=== PATIENT | male | born 1950 | race Caucasian/White ===

== ENCOUNTER 2021-03-07 20:01 | Inpatient (IN) ==
[2021-03-07] MEDS ORDERED: POTASSIUM CHLORIDE 20 MEQ TABLET PO PRN ×2 (20:20)
[2021-03-07] MEDS ORDERED: VANCOMYCIN PER PHARMACY IV SCH (20:20)
[2021-03-07] MEDS ORDERED: MAGNESIUM SULFATE 2 GM/50 ML BAG IV PRN (20:20)
[2021-03-07] MEDS ORDERED: DEXTROSE 31 GM ORAL.SUSP PO PRN (20:20)
[2021-03-07] MEDS ORDERED: POTASSIUM CHLORIDE 40 MEQ in DEXTROSE 5% IN WATER 500 ML IV PRN (20:20)
[2021-03-07] MEDS ORDERED: DEXTROSE 50% 50 ML VIAL IV PRN (20:20)
[2021-03-07] MEDS ORDERED: IPRATROPIUM/ALBUTEROL 3 ML AMPUL.NEB NEB PRN (20:20)
[2021-03-07] MEDS ORDERED: METOCLOPRAMIDE 10 MG/2 ML VIAL IV PRN (20:20)
[2021-03-07] MEDS ORDERED: ACETAMINOPHEN 325 MG TABLET PO PRN (20:20)
[2021-03-07] MEDS ORDERED: ONDANSETRON 4 MG/2 ML VIAL IV PRN (20:20)
[2021-03-07] MEDS ORDERED: SENNOSIDES 1 TABLET PO PRN (20:20)
--- NOTE | 2021-03-07 20:20 | Internal Med History&Physical ---
HPI History of Present Illness Patient information: Note initiated : 03/07/21 at 8:04 pm Service Date, if different from initiated Date: [] Patient: Kevin Randolph a 70 y/o M admitted on for weakness, neutropenic fever. Chief Complaint: [] History of present illness: Mr. Randolph is a 70 year old M Patient presents to [facility] with shaking tremors. 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 He felt fine in the morning prior to his c hemotherapy. He has a history of tremors the left side and has them daily. Symptoms are worse than other times. Remaining go to the ED today is because his left side tremors are came so severe and then they started moving over the right side which she has not had before. He does not feel ill just tired. Denies chest pain shortness of breath abdominal pain. When he was evaluated in the ED his laboratory was concerning for septic picture because he had a severe lactic acidosis and he was febrile in the ED -and with his chronic pancytopenia a source of infection was sought after but unable to be identified. Laboratory was significant for neutropenia which is had at least since February 16. Is a history of pancytopenia and has been receiving platelet transfusions as well as red blood cell transfusions when hematocrit falls to less than 28. In the ED he was evaluated his blood pressure remained stable in the low 100s. He was febrile of 103 when he came in. His procalcitonin was elevated mildly 0.57. He had a CT abdomen pelvis looking for source of infection as initial chest x- ray and urinalysis were unremarkable. The CT only showed a questionable developing pneumonia. [facility] unable to find a bed for the patient and thus we were contacted. Blood cultures were obtained patient received sepsis protocol IV fluids and given vancomycin and cefepime. ED physician in the process of trying to get a hold of the patient's oncologist but has been unsuccessful. Review of Systems: denies headache/fever/chills/nausea/vomiting/chest or abdominal pain/cough/dyspnea/diarrhea. Otherwise see above. MEDS/ALLERGIES Home Medications and Allergies Home Medications Medication Instructions Recorded Confirmed Type aripiprazole 5 mg PO DAILY 06/09/19 07/01/19 History bisoprolol-hydrochlorothiazide 1 each PO DAILY 06/09/19 07/01/19 History cholecalciferol (vitamin D3) 5,000 unit PO DAILY 06/09/19 07/01/19 History losartan 100 mg PO DAILY 06/09/19 07/01/19 History metformin 500 mg PO BIDCC 06/09/19 07/01/19 History multivitamin 1 each PO DAILY 06/09/19 07/01/19 History Allergies Allergy/AdvReac Type Severity Reaction Status Date / Time No Known Drug Intolerances Allergy Unknown Verified 06/09/19 08:53 EXAM Constitutional Exam: General: Alert, Awake, No acute Distress Eyes/N/T: EOMI, PERRL, MM Head/Neck: neck supple, normocephalic atraumatic CV: RRR, No murmurs, normal s1/s2 Pulm: Clear b/l, no wheezing/rhonchi/rales Abd: soft, nontender, +BS x4 Ext: no clubbing/cyanosis/edema Neuro: Alert, no focal deficits, moves all extremities, CN 2-12 grossly intact, symmetrical strength b/l upper/lower, sensations intact b/l upper/lower Skin: warm/dry A/P Narrative A/P Narrative: A: *Neutropenic fever & Lactic Acidosis, ?sepsis: Unknown source of infection at this time -CT c/a/p only showed a ?developing pneumonia *Volume depletion: *Pancytopenia: Receives prn transfusions for PLT <30k and Hct <28 -ANC 740, Hct 24, Plt 19 *AML/MDS: Follows with Dr. Alfonso. last chemotherapy the day of admission *DM: *COPD( ): *Depression/anxiety: *GERD: *HTN: On ARB/BB *Left-side tremors, chronic for several years: P: -Vanc/Zosyn/levaquin, if fevers persist by day 4 then add antifungal therapy -pending BC -discuss with his oncologist tomorrow -prn Transfusions for Hct<28 and PLT <30k -consider G-CSF if ANC declines -hold ARB/BB for low-normal BP -SSI, hold metformin for now - -pt/to -ppx: SCD(hold chemical for PLT<50k)/home ppi Time Spent With Patient Time: Total time spent is greater than 50% in coordination of care (as documented) at patient's floor/unit and/or counseling patient:
[2021-03-07] MEDS ORDERED: 0.9 % SODIUM CHLORIDE 250 ML IV SCH ×2 (20:30→20:45)
[2021-03-07] MEDS ORDERED: 0.9 % SODIUM CHLORIDE 1,000 ML IV SCH (20:30)
[2021-03-07] MEDS ORDERED: ALPRAZolam 0.25 MG TABLET PO PRN (22:39)
[2021-03-07] MEDS ORDERED: LABETALOL 5 MG/ML ML IV PRN (22:39)
[2021-03-07] MEDS ORDERED: PROCHLORPERAZINE 10 MG/2 ML VIAL IV PRN (22:40)
[2021-03-07] MEDS ORDERED: LEVOFLOXACIN 750 MG/150 ML BAG IV ONE (22:54)
[2021-03-07] MEDS: VANCOMYCIN 1,500 MG in 0.9 % SODIUM CHLORIDE 500 ML IV SCH (22:54)
[2021-03-07] MEDS: 0.9 % SODIUM CHLORIDE 10 ML SYRINGE IV SCH (22:55)
[2021-03-07] MEDS: LEVOFLOXACIN 750 MG/150 ML BAG IV SCH (23:01)
[2021-03-07] MEDS: DOCUSATE SODIUM 100 MG CAPSULE PO SCH (23:16)
[2021-03-07] MEDS: INSULIN LISPRO 1 UNIT/0.01 ML UNIT SQ SCH (23:17)
[2021-03-07 23:44] LABS: ALT/SGPT 42 U/L (<40); AST/SGOT 22 U/L (<40); Albumin 3.1 gm/dL (3.2-5.2); Albumin/Globulin Ratio 1.5 (1.0-2.3); Alkaline Phosphatase 106 U/L (39-117); Bilirubin,Direct 0.3 mg/dL (<0.3); Bilirubin,Total 0.5 mg/dL (0.1-1.0); Blood Urea Nitrogen 20 mg/dL (8-23); Calcium 8.3 mg/dL (8.6-10.4); Carbon Dioxide 19 mmol/L (22-30); Chloride 103 mmol/L (96-108); Glomerular Filtration Rate 90; Glucose 372 mg/dL (70-105); Lactate Dehydrogenase 131 U/L (135-225); Triglycerides 90 mg/dL (<150); Uric Acid 3.4 mg/dL (2.5-8.0)
[2021-03-08] MEDS: PIPERACILLIN SODIUM/TAZOBACTAM 3.375 GM in DEXTROSE 5% IN WATER 50 ML IV SCH ×4 (00:27→17:32)
[2021-03-08] MEDS: INSULIN LISPRO 1 UNIT/0.01 ML UNIT SQ SCH ×5 (01:21→21:08)
[2021-03-08] MEDS: 0.9 % SODIUM CHLORIDE 10 ML SYRINGE IV SCH ×3 (05:06→20:54)
[2021-03-08] MEDS: PANTOPRAZOLE 40 MG PACKET PO SCH (07:16)
--- NOTE | 2021-03-08 07:34 | Internal Med Progress Note ---
SUBJECTIVE Subjective Patient information: Note initiated : 03/08/21 at 7:30 am Service Date, if different from initiated Date: [] Patient: Kevin Randolph 70 y/o M admitted on 03/07/21 for weakness, neutropenic fever. Chief Complaint: [] Interval history: History of present illness: Mr. Randolph is a 70 year old M Patient presents to [facility] with shaking tremors. 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 He felt fine in the morning prior to his chemotherapy. He has a history of tremors the left side and has them daily. Symptoms are worse than other times. Remaining go to the ED today is because his left side tremors are came so severe and then they started moving over the right side which she has not had before. He does not feel ill just tired. Denies chest pain shortness of breath abdominal pain. When he was evaluated in the ED his laboratory was concerning for septic picture because he had a severe lactic acidosis and he was febrile in the ED -and with his chronic pancytopenia a source of infection was sought after but unable to be identified. Laboratory was significant for neutropenia which is had at least since February 16. Is a history of pancytopenia and has been receiving platelet transfusions as well as red blood cell transfusions when hematocrit falls to less than 28. In the ED he was evaluated his blood pressure remained stable in the low 100s. He was febrile of 103 when he came in. His procalcitonin was elevated mildly 0.57. He had a CT abdomen pelvis looking for source of infection as initial chest x- ray and urinalysis were unremarkable. The CT only showed a questionable developing pneumonia. [facility] unable to find a bed for the patient and thus we were contacted. Blood cultures were obtained patient received sepsis protocol IV fluids and given vancomycin and cefepime. ED physician in the process of trying to get a hold of the patient's oncologist but has been unsuccessful. 03/08 Constitutional Vitals: Vital Signs Temp Pulse Resp BP Pulse Ox 97.9 F 73 12 138/80 98 03/08/21 05:15 03/08/21 06:07 03/08/21 06:07 03/08/21 06:06 03/08/21 06:07 Period Temp Pulse Resp BP Sys/Quijano Pulse Ox Last 24 Hr 97.3 F-98.0 F 71-92 10-20 90-138/59-85 94-100 Intake and Output 03/07/21 03/08/21 03/08/21 21:59 05:59 13:59 Intake Total 1296 Output Total 600 Balance 696 Weight 82.1 kg Intake & Output: Intake & Output 03/07/21 03/08/21 03/08/21 21:59 05:59 13:59 Intake Total 1296 Output Total 600 Balance 696 Weight 82.1 kg Intake: IV 871 Sodium Chloride 0.9% 250 ml @ 21 20 mls/hr IV .[id number] [facility] Rx#: [id number] LEVAQUIN 750 mg In 150 ml @ 0 150 mls/hr IV .STK-MED ONE Rx#: [id number] Zosyn 3.375 gm In Dextrose 5% 50 in Water 50 ml @ 100 mls/hr IV Q6H [facility] Rx#:[id number] Vancomycin 1,500 mg In Sodium 500 Chloride 0.9% 500 ml @ 333.3 mls/hr IV Q12H [facility] Rx#: [id number] Oral 100 Blood Product 325 Output: Void Amount 600 Other: Urine Appearance Clear Urine Color Dark Yellow Exam: General: Alert, Awake, No acute Distress Eyes/N/T: EOMI, Head/Neck: neck supple, CV: RRR, No murmurs, Pulm: Clear b/l, no wheezing/rhonchi/rales Abd: soft, nontender, +BS x4 Ext: no clubbing/cyanosis/edema Neuro: Alert, no focal deficits, moves all extremities, Skin: warm/dry OBJ DATA Labs CBC & Chem 7: 03/08/21 08:20 03/07/21 22:41 Labs: Abnormal Lab Results 03/07/21 22:41 Potassium 5.2 H Carbon Dioxide 19 L Glucose 372 H Calcium 8.3 L Direct Bilirubin 0.3 H GGT 172 H ALT 42 H Lactate Dehydrogenase 131 L Total Protein 5.1 L Albumin 3.1 L Globulin 2.0 L Meds: Medications Acetaminophen (Acetaminophen 325 Mg Tablet) 650 mg PO Q6HP PRN PRN Reason: PAIN/FEVER > 101 Acyclovir (Acyclovir 400 Mg Tablet) 800 mg PO BID [facility]; Protocol Albuterol/Ipratropium (Ipratropium/Albuterol 3 Ml Ampul.Neb) 3 ml NEB Q4HP PRN PRN Reason: Shortness Of Breath Alprazolam (Alprazolam 0.25 Mg Tablet) 0.25 mg PO BIDP PRN PRN Reason: Anxiety Dextrose (Dextrose 50% 50 Ml Vial) 0 ml IV UD PRN PRN Reason: Hypoglycemia Diagnostic Test (Pha) (Accu-Chek 1 Each Strip) 1 each FS ACHS [facility] Last Admin: 03/08/21 03:21 Dose: 1 each Documented by: Docusate Sodium (Docusate Sodium 100 Mg Capsule) 100 mg PO BID [facility] Last Admin: 03/07/21 23:16 Dose: 100 mg Documented by: Glucose (Dextrose 31 Gm Oral.Susp) 15 gm PO PRN PRN PRN Reason: Hypoglycemia Heparin Sodium (Porcine) (Heparin Flush 10 Units/Ml 5 Ml Syringe) 5 ml IV Q12 [facility] Potassium Chloride 40 meq/ (Dextrose) 520 mls @ 130 mls/hr IV UD PRN PRN Reason: Potassium < 3 Magnesium Sulfate (Magnesium Sulfate) 2 gm in 50 mls @ 50 mls/hr IV UD PRN PRN Reason: Magnesium </= 1.6 Sodium Chloride (Sodium Chloride 0.9%) 1,000 mls @ 75 mls/hr IV .[id number] [facility] Stop: 03/08/21 09:49 Last Admin: 03/07/21 22:45 Dose: 75 mls/hr Documented by: Piperacillin Sod/Tazobactam (Sod 3.375 gm/ Dextrose) 50 mls @ 100 mls/hr IV Q6H [facility]; Protocol Last Infusion: 03/08/21 00:59 Dose: Infused Documented by: Sodium Chloride (Sodium Chloride 0.9%) 250 mls @ 20 mls/hr IV .[id number] [facility] Stop: 03/08/21 08:59 Last Infusion: 03/08/21 05:02 Dose: 20 mls/hr Documented by: Sodium Chloride (Sodium Chloride 0.9%) 250 mls @ 20 mls/hr IV .[id number] [facility] Stop: 03/08/21 09:14 Vancomycin HCl 1,500 mg/ (Sodium Chloride) 500 mls @ 333.3 mls/hr IV Q12H [facility] Last Infusion: 03/08/21 00:57 Dose: Infused Documented by: Levofloxacin (Levaquin) 750 mg in 150 mls @ 100 mls/hr IV Q24H [facility] Last Infusion: 03/08/21 00:58 Dose: Infused Documented by: Insulin Human Lispro (Insulin Lispro 1 Unit/0.01 Ml Unit) 0 unit SQ ACHS [facility]; Protocol Last Admin: 03/08/21 01:21 Dose: 14 units Documented by: Labetalol HCl (Labetalol 5 Mg/Ml Ml) 0 mg IV Q2HP PRN PRN Reason: Hypertension Metoclopramide HCl (Metoclopramide 10 Mg/2 Ml Vial) 10 mg IV Q6HP PRN PRN Reason: Nausea And Vomiting Ondansetron HCl (Ondansetron 4 Mg/2 Ml Vial) 4 mg IV Q4HP PRN PRN Reason: Nausea And Vomiting Pantoprazole Sodium ([facility] 40 Mg Packet) [facility] Potassium Chloride (Potassium Chloride 20 Meq Tablet) 40 meq PO UD PRN PRN Reason: Potssium is 3-3.5 Potassium Chloride (Potassium Chloride 20 Meq Tablet) 40 meq PO UD PRN PRN Reason: Potassium < 3 Prochlorperazine (Prochlorperazine 10 Mg/2 Ml Vial) 5 mg IV Q4-6HP PRN PRN Reason: Nausea And Vomiting Senna (Sennosides 1 Tablet) 2 tab PO DAILYP PRN PRN Reason: Constipation Sodium Chloride (0.9 % Sodium Chloride 10 Ml Syringe) 10 ml IV Q8 [facility] Last Admin: 03/08/21 05:06 Dose: 10 ml Documented by: Vancomycin HCl (Vancomycin Per Pharmacy) 1 order IV [facility]; Protocol A/P Narrative A/P Narrative: A: *Neutropenic fever & Lactic Acidosis, ?sepsis: Unknown source of infection at this time -CT c/a/p only showed a ?developing pneumonia *Volume depletion: *Pancytopenia: Receives prn transfusions for PLT <30k and Hct <28 -ANC 740, Hct 24, Plt 19 *AML/MDS: Follows with Dr. Alfonso. last chemotherapy the day of admission *DM: *COPD( ): *Depression/anxiety: *GERD: *HTN: On ARB/BB *Left-side tremors, chronic for several years: P: -Discussed the case with Dr. Gruber (colleague of Dr. Alfonso) who recommended to continue current therapy and heme prn orders and await cx's and if he continues to do as well as he is doing then d/c on oral therapy once cultures return. -Vanc/Zosyn/levaquin, if fevers persist by day 4 then add antifungal therapy -pending BC results from [facility] -discuss with his oncologist -prn Transfusions for Hct<28 and PLT <30k -consider G-CSF if ANC declines -restart BP meds, BB today and ARB tomorrow. Needs meds updated in system first -SSI, hold metformin for now - -pt/to -ppx: SCD(hold chemical for PLT<50k)/home ppi Time Spent With Patient Time: Total time spent is greater than 50% in coordination of care (as doc umented) at patient's floor/unit and/or counseling patient: QUALITY Stroke Symptom Onset Unknown: No VTE Deep Vein Thrombosis/Pulmonary Embolism Present on Admission: No
--- NOTE | 2021-03-08 08:56 | XRay Report ---
HISTORY: Weakness, neutropenic fever, evaluate for developing pneumonia FINDINGS: Patient has COPD with moderate pulmonary fibrosis throughout both lungs. Greatest opacification of the lung parenchyma is behind the left heart border. The pulmonary fibrosis is a chronic finding which was seen on 08/14/07. It has become worse. There is no lobar consolidation or pleural effusion. The heart size is normal. Aorta is mildly tortuous. There is a Port-A-Cath placed through the right internal jugular vein with the tip in the superior vena cava. There is no widening of the mediastinum. IMPRESSION: Moderate COPD with pulmonary fibrosis Asymmetric opacification in the left lower lobe which could be superimposed pneumonia or atelectasis. Interpreted and Authenticated by: Margarito Jackson 03/08/21
[2021-03-08] MEDS: VANCOMYCIN 1,500 MG in 0.9 % SODIUM CHLORIDE 500 ML IV SCH ×2 (09:35→21:09)
[2021-03-08] MEDS: DOCUSATE SODIUM 100 MG CAPSULE PO SCH ×3 (09:36→23:07)
[2021-03-08] MEDS: ACYCLOVIR 400 MG TABLET PO SCH ×2 (09:36→21:08)
[2021-03-08 12:50] LABS: ALT/SGPT 42 U/L (<40); AST/SGOT 22 U/L (<40); Albumin 2.9 gm/dL (3.2-5.2); Albumin/Globulin Ratio 1.3 (1.0-2.3); Alkaline Phosphatase 92 U/L (39-117); Bilirubin,Direct 0.3 mg/dL (<0.3); Bilirubin,Total 0.7 mg/dL (0.1-1.0); Blood Urea Nitrogen 18 mg/dL (8-23); Calcium 8.7 mg/dL (8.6-10.4); Carbon Dioxide 20 mmol/L (22-30); Chloride 107 mmol/L (96-108); Globulin 2.2 gm/dL (2.2-3.7); Glomerular Filtration Rate 95; Glucose 200 mg/dL (70-105); Lactate Dehydrogenase 140 U/L (135-225); Phosphorous 2.5 mg/dL (2.5-4.5); Triglycerides 84 mg/dL (<150); Uric Acid 2.5 mg/dL (2.5-8.0)
[2021-03-08 13:15] LABS: Hemoglobin A1C 7.4 % Hgb (4.0-6.0)
[2021-03-08 13:19] LABS: Hematocrit 21.2 % (41.0-55.0); Hemoglobin 7.1 g/dL (13.5-16.5); Mean Cell Volume 95.9 fL (80.0-100.0); Mean Corpuscular HGB Conc 33.5 g/dL (31.0-36.0); Platelet Count 6 K/mcL (140-440); RBC 2.21 M/mcL (4.50-5.90); Red Cell Distribution Width 14.9 % (11.5-14.5); WBC 0.3 K/mcL (4.5-11.0)
[2021-03-08] MEDS ORDERED: 0.9 % SODIUM CHLORIDE 250 ML IV SCH (13:45)
[2021-03-08 14:40] LABS: Anisocytosis 1+ (None Seen); Band Neutrophils % 17 % (0-10); Hypochromasia 2+ (None Seen); Lymphocytes % 34 % (15-49); Metamyelocytes % 1 %; Monocytes % (Manual) 7 % (1-12); Nucleated Red Blood Cells 3 % (0-0); Platelet Estimate DECREASED (Normal); RBC Morphology ABNORMAL (Normal); Reactive Lymphocytes 4 % (0-2); Segmented Neutrophils % 37 % (38-78)
[2021-03-08] MEDS: LEVOFLOXACIN 750 MG/150 ML BAG IV SCH (15:17)
[2021-03-09] MEDS: PIPERACILLIN SODIUM/TAZOBACTAM 3.375 GM in DEXTROSE 5% IN WATER 50 ML IV SCH ×4 (00:14→18:22)
[2021-03-09] MEDS: 0.9 % SODIUM CHLORIDE 10 ML SYRINGE IV SCH ×5 (05:42→22:18)
[2021-03-09 07:02] LABS: ALT/SGPT 44 U/L (<40); AST/SGOT 29 U/L (<40); Albumin 2.8 gm/dL (3.2-5.2); Albumin/Globulin Ratio 1.3 (1.0-2.3); Alkaline Phosphatase 101 U/L (39-117); Bilirubin,Direct 0.3 mg/dL (<0.3); Bilirubin,Total 0.6 mg/dL (0.1-1.0); Blood Urea Nitrogen 16 mg/dL (8-23); Calcium 8.3 mg/dL (8.6-10.4); Carbon Dioxide 22 mmol/L (22-30); Chloride 107 mmol/L (96-108); Globulin 2.1 gm/dL (2.2-3.7); Glomerular Filtration Rate 95; Glucose 201 mg/dL (70-105); Lactate Dehydrogenase 146 U/L (135-225); Phosphorous 2.4 mg/dL (2.5-4.5); Triglycerides 72 mg/dL (<150); Uric Acid 2.2 mg/dL (2.5-8.0)
[2021-03-09 07:23] LABS: Hematocrit 21.3 % (41.0-55.0); Hemoglobin 7.3 g/dL (13.5-16.5); Mean Cell Volume 92.2 fL (80.0-100.0); Mean Corpuscular HGB Conc 34.3 g/dL (31.0-36.0); Mean Platelet Volume 10.3 fL (7.4-10.4); Platelet Count 28 K/mcL (140-440); RBC 2.31 M/mcL (4.50-5.90); Red Cell Distribution Width 14.6 % (11.5-14.5); WBC 0.2 K/mcL (4.5-11.0)
[2021-03-09] MEDS: DOCUSATE SODIUM 100 MG CAPSULE PO SCH ×2 (07:44→20:29)
[2021-03-09] MEDS: INSULIN LISPRO 1 UNIT/0.01 ML UNIT SQ SCH ×4 (07:44→20:27)
[2021-03-09] MEDS: PANTOPRAZOLE 40 MG PACKET PO SCH ×2 (07:45→08:02)
[2021-03-09] MEDS: ACYCLOVIR 400 MG TABLET PO SCH ×2 (08:13→20:36)
[2021-03-09 08:35] LABS: Band Neutrophils % 19 % (0-10); Eosinophils % (Manual) 2 % (0-7); Hypochromasia 1+ (None Seen); Lymphocytes % 32 % (15-49); Metamyelocytes % 4 %; Monocytes % (Manual) 7 % (1-12); Myelocytes % 4 %; Platelet Estimate MARKEDLY DECREASED (Normal); RBC Morphology ABNORMAL (Normal); Segmented Neutrophils % 32 % (38-78)
[2021-03-09] MEDS: VANCOMYCIN 1,500 MG in 0.9 % SODIUM CHLORIDE 500 ML IV SCH ×2 (09:40→20:31)
--- NOTE | 2021-03-09 11:08 | Internal Med Progress Note ---
SUBJECTIVE Subjective Patient information: Note initiated : 03/09/21 at 11:01 am Service Date, if different from initiated Date: [] Patient: Kevin Randolph 70 y/o M admitted on 03/07/21 for weakness, neutropenic fever. Chief Complaint: [neutropenia fever] 03/09/21: Afebrile overnight. Absolute neutrophile count is 102 this morning. c/o chills. c/o left sided tremors. Denies fever or sweating. c/o general body weakness. Denies nausea or vomiting. Constitutional Vitals: Vital Signs Temp Pulse Resp BP Pulse Ox 36.6 C 73 19 109/66 95 03/09/21 08:01 03/09/21 06:00 03/09/21 08:01 03/09/21 08:01 03/09/21 06:00 Period Temp Pulse Resp BP Sys/Quijano Pulse Ox Last 24 Hr 36.0 C-36.7 C 70-103 15-24 109-150/42-87 81-97 Intake and Output 03/08/21 03/09/21 03/09/21 21:59 05:59 13:59 Intake Total 1930 841 290 Output Total 350 1200 625 Balance 1580 -359 -335 Weight 81.42 kg Intake & Output: Intake & Output 03/08/21 03/09/21 03/09/21 21:59 05:59 13:59 Intake Total 1930 841 290 Output Total 350 1200 625 Balance 1580 -359 -335 Weight 81.42 kg Intake: IV 1450 550 50 Sodium Chloride 0.9% 1,000 ml @ 1000 75 mls/hr IV .[id number] [facility] Rx#: [id number] Sodium Chloride 0.9% 250 ml @ 200 20 mls/hr IV .[id number] [facility] Rx#: [id number] Zosyn 3.375 gm In Dextrose 5% 100 50 50 in Water 50 ml @ 100 mls/hr IV Q6H [facility] Rx#:[id number] Vancomycin 1,500 mg In Sodium 500 Chloride 0.9% 500 ml @ 333.3 mls/hr IV Q12H [facility] Rx#: [id number] Oral 480 240 Blood Product 291 Output: Void Amount 350 1200 625 Other: Meal Dinner Breakfast Percent of Meal Consumed 100% 100% Feeding Ability Independent Urine Appearance Clear Clear Clear Urine Color Pale Pale Pale General appearance: cooperative and no acute distress Head Head exam: Present atraumatic and normocephalic Eye Eye exam: Present EOMI and PERRL ENT ENT exam: Present mucous membranes moist, normal exam and normal external ear exam Neck Neck exam: Present normal inspection; Absent lymphadenopathy, tenderness and thyromegaly Respiratory Respiratory exam: Absent accessory muscle use, respiratory distress and wheezes Cardiovascular Cardiovascular exam: Present normal rate and rhythm; Absent JVD GI/Abdominal GI/Abdominal exam: Present normal bowel sounds and soft; Absent organomegaly and tenderness Rectal Rectal exam: Present deferred Extremities Exam Extremities exam: Present full ROM, normal capillary refill and normal inspection; Absent tenderness Neurological Exam Neurological exam: Present alert, CN II-XII intact and oriented X3; Absent motor sensory deficit Psychiatric Psychiatric exam: Present normal affect and normal mood; Absent anxious and depressed Skin Skin exam: Present dry and intact OBJ DATA Labs CBC & Chem 7: 03/09/21 05:02 03/09/21 05:02 Labs: Abnormal Lab Results 03/09/21 03/09/21 03/08/21 05:02 05:02 08:20 WBC 0.2 L* RBC 2.31 L Hgb 7.3 L Hct 21.3 L RDW 14.6 H Plt Count 28 L* Seg Neutrophils % 32 L Band Neutrophils % 19 H Nucleated RBCs Reactive Lymphocytes Platelet Estimate Markedly decreased A RBC Morphology Abnormal A Hypochromasia 1+ A Anisocytosis Potassium Carbon Dioxide 20 L Glucose 201 H 200 H Hemoglobin A1c Uric Acid 2.2 L Calcium 8.3 L Phosphorus 2.4 L Direct Bilirubin 0.3 H 0.3 H GGT 138 H 163 H ALT 44 H 42 H Lactate Dehydrogenase C-Reactive Protein Total Protein 4.9 L 5.1 L Albumin 2.8 L 2.9 L Globulin 2.1 L Procalcitonin 03/08/21 03/08/21 03/08/21 08:20 08:20 08:20 WBC RBC Hgb Hct RDW Plt Count Seg Neutrophils % Band Neutrophils % Nucleated RBCs Reactive Lymphocytes Platelet Estimate RBC Morphology Hypochromasia Anisocytosis Potassium Carbon Dioxide Glucose Hemoglobin A1c 7.4 H Uric Acid Calcium Phosphorus Direct Bilirubin GGT ALT Lactate Dehydrogenase C-Reactive Protein 6.40 H Total Protein Albumin Globulin Procalcitonin 0.60 H 03/08/21 03/07/21 08:20 22:41 WBC 0.3 L* RBC 2.21 L Hgb 7.1 L Hct 21.2 L RDW 14.9 H Plt Count 6 L* Seg Neutrophils % 37 L Band Neutrophils % 17 H Nucleated RBCs 3 H Reactive Lymphocytes 4 H Platelet Estimate Decreased A RBC Morphology Abnormal A Hypochromasia 2+ A Anisocytosis 1+ A Potassium 5.2 H Carbon Dioxide 19 L Glucose 372 H Hemoglobin A1c Uric Acid Calcium 8.3 L Phosphorus Direct Bilirubin 0.3 H GGT 172 H ALT 42 H Lactate Dehydrogenase 131 L C-Reactive Protein Total Protein 5.1 L Albumin 3.1 L Globulin 2.0 L Procalcitonin Meds: Medications Acetaminophen (Acetaminophen 325 Mg Tablet) 650 mg PO Q6HP PRN PRN Reason: PAIN/FEVER > 101 Acyclovir (Acyclovir 400 Mg Tablet) 800 mg PO BID [facility]; Protocol Last Admin: 03/09/21 08:13 Dose: 800 mg Documented by: Albuterol/Ipratropium (Ipratropium/Albuterol 3 Ml Ampul.Neb) 3 ml NEB Q4HP PRN PRN Reason: Shortness Of Breath Alprazolam (Alprazolam 0.25 Mg Tablet) 0.25 mg PO BIDP PRN PRN Reason: Anxiety Last Admin: 03/09/21 08:32 Dose: 0.25 mg Documented by: Dextrose (Dextrose 50% 50 Ml Vial) 0 ml IV UD PRN PRN Reason: Hypoglycemia Diagnostic Test (Pha) (Accu-Chek 1 Each Strip) 1 each FS ACHS [facility] Last Admin: 03/09/21 07:41 Dose: 1 each Documented by: Docusate Sodium (Docusate Sodium 100 Mg Capsule) 100 mg PO BID [facility] Last Admin: 03/09/21 07:44 Dose: 100 mg Documented by: Filgrastim (Filgrastim 300 Mcg/Ml Vial) 300 mcg SQ DAILY [facility] Glucose (Dextrose 31 Gm Oral.Susp) 15 gm PO PRN PRN PRN Reason: Hypoglycemia Heparin Sodium (Porcine) (Heparin Flush 10 Units/Ml 5 Ml Syringe) 5 ml IV Q12 [facility] Last Admin: 03/09/21 07:45 Dose: 5 ml Documented by: Potassium Chloride 40 meq/ (Dextrose) 520 mls @ 130 mls/hr IV UD PRN PRN Reason: Potassium < 3 Magnesium Sulfate (Magnesium Sulfate) 2 gm in 50 mls @ 50 mls/hr IV UD PRN PRN Reason: Magnesium </= 1.6 Piperacillin Sod/Tazobactam (Sod 3.375 gm/ Dextrose) 50 mls @ 100 mls/hr IV Q6H [facility]; Protocol Last Infusion: 03/09/21 06:21 Dose: Infused Documented by: Vancomycin HCl 1,500 mg/ (Sodium Chloride) 500 mls @ 333.3 mls/hr IV Q12H [facility] Last Admin: 03/09/21 09:40 Dose: 333 mls/hr Documented by: Levofloxacin (Levaquin) 750 mg in 150 mls @ 100 mls/hr IV Q24H [facility] Last Infusion: 03/08/21 19:42 Dose: Infused Documented by: Insulin Human Lispro (Insulin Lispro 1 Unit/0.01 Ml Unit) 0 unit SQ ACHS [facility]; Protocol Last Admin: 03/09/21 07:44 Dose: 6 units Documented by: Labetalol HCl (Labetalol 5 Mg/Ml Ml) 0 mg IV Q2HP PRN PRN Reason: Hypertension Metoclopramide HCl (Metoclopramide 10 Mg/2 Ml Vial) 10 mg IV Q6HP PRN PRN Reason: Nausea And Vomiting Ondansetron HCl (Ondansetron 4 Mg/2 Ml Vial) 4 mg IV Q4HP PRN PRN Reason: Nausea And Vomiting Pantoprazole Sodium (Pantoprazole 40 Mg Packet) 40 mg PO QAMAC [facility] Last Admin: 03/09/21 08:02 Dose: Not Given Documented by: Cyanocobalamin ( Vitamin B-12) 50 Mcg Tablet 1 dose PO QDAY [facility] Last Admin: 03/09/21 07:54 Dose: Not Given Documented by: Potassium Chloride (Potassium Chloride 20 Meq Tablet) 40 meq PO UD PRN PRN Reason: Potssium is 3-3.5 Potassium Chloride (Potassium Chloride 20 Meq Tablet) 40 meq PO UD PRN PRN Reason: Potassium < 3 Prochlorperazine (Prochlorperazine 10 Mg/2 Ml Vial) 5 mg IV Q4-6HP PRN PRN Reason: Nausea And Vomiting Senna (Sennosides 1 Tablet) 2 tab PO DAILYP PRN PRN Reason: Constipation Sodium Chloride (0.9 % Sodium Chloride 10 Ml Syringe) 10 ml IV Q8 [facility] Last Admin: 03/09/21 05:42 Dose: 10 ml Documented by: Vancomycin HCl (Vancomycin Per Pharmacy) 1 order IV UD [facility]; Protocol A/P Assessment and plan (1) Neutropenia with fever: Status: Acute (2) MDS (myelodysplastic syndrome): Status: Acute (3) AML (acute myeloblastic leukemia): Status: Acute (4) Pancytopenia: Status: Acute (5) Essential (primary) hypertension: Status: Acute (6) T2DM (type 2 diabetes mellitus): Status: Acute (7) Benign essential tremor: Status: Acute Narrative A/P Narrative: Assessment and Plans: 1. Neutropenic fever: Neupogen cbc w/ auto diff daily to trend WBC and ANC Repeat Blood culture X2 Neutropenic precautions Consult Dr. Krishna, recs. appreciated Vancomycin Zosyn Levaquin 2. h/o AML/MDS: Dr. Roberts spoke with oncologist, who agreed on current choice of antibiotics Neupogen Neutropenic precautions cbc w/ auto diff daily to trend WBC and ANC 3. Benign essential Tremors: DDx: secondary to infection Continue to treat for (any) underlying infection, see #1 4. T2DM: Hold oral hypoglycemics Continue correctional scale insulin AC HS Accu Chek AC HS Hypoglycemia protocol Diabetic diet 5. Essential HTN: Currently normotensive GI ppx: oral PPI DVT ppx: SCDs Code status: Full Prognosis: guarded Disposition: transfer to inpatient med surg Time Spent With Patient Time: Total time spent is greater than 50% in coordination of care (as documented) at patient's floor/unit and/or counseling patient: Total time spent with greater than 50% in coordination of care (as documented) at patient's floor/unit and/or counseling patient:: 25 - 35 minutes QUALITY Stroke Symptom Onset Unknown: No VTE Deep Vein Thrombosis/Pulmonary Embolism Present on Admission: No
[2021-03-09] MEDS: LEVOFLOXACIN 750 MG/150 ML BAG IV SCH (11:11)
[2021-03-09] MEDS ORDERED: PROCHLORPERAZINE 10 MG/2 ML VIAL IV PRN (11:12)
[2021-03-09] MEDS ORDERED: DEXTROSE 50% 50 ML VIAL IV PRN (11:12)
[2021-03-09] MEDS ORDERED: ONDANSETRON 4 MG/2 ML VIAL IV PRN (11:12)
[2021-03-09] MEDS ORDERED: SENNOSIDES 1 TABLET PO PRN (11:12)
[2021-03-09] MEDS ORDERED: VANCOMYCIN PER PHARMACY IV SCH (11:12)
[2021-03-09] MEDS ORDERED: MAGNESIUM SULFATE 2 GM/50 ML BAG IV PRN (11:12)
[2021-03-09] MEDS ORDERED: POTASSIUM CHLORIDE 20 MEQ TABLET PO PRN ×2 (11:12)
[2021-03-09] MEDS ORDERED: DEXTROSE 31 GM ORAL.SUSP PO PRN (11:12)
[2021-03-09] MEDS ORDERED: POTASSIUM CHLORIDE 40 MEQ in DEXTROSE 5% IN WATER 500 ML IV PRN (11:12)
[2021-03-09] MEDS ORDERED: METOCLOPRAMIDE 10 MG/2 ML VIAL IV PRN (11:12)
[2021-03-09] MEDS ORDERED: IPRATROPIUM/ALBUTEROL 3 ML AMPUL.NEB NEB PRN (11:12)
[2021-03-09] MEDS: TBO-FILGRASTIM 300 MCG/0.5 ML SYRINGE SQ SCH (16:05)
[2021-03-09] MEDS: ACETAMINOPHEN 325 MG TABLET PO PRN (20:29)
[2021-03-09] MEDS: ALPRAZolam 0.25 MG TABLET PO PRN (20:35)
[2021-03-10] MEDS: 0.9 % SODIUM CHLORIDE 10 ML SYRINGE IV SCH ×9 (00:30→22:09)
[2021-03-10] MEDS: ACETAMINOPHEN 325 MG TABLET PO PRN ×2 (05:05→20:26)
[2021-03-10] MEDS: LABETALOL 5 MG/ML ML IV PRN (05:06)
[2021-03-10] MEDS: PIPERACILLIN SODIUM/TAZOBACTAM 3.375 GM in DEXTROSE 5% IN WATER 50 ML IV SCH ×4 (05:57→18:19)
[2021-03-10] MEDS: PANTOPRAZOLE 40 MG PACKET PO SCH (07:35)
[2021-03-10 07:47] LABS: ALT/SGPT 71 U/L (<40); AST/SGOT 48 U/L (<40); Albumin 2.9 gm/dL (3.2-5.2); Albumin/Globulin Ratio 1.1 (1.0-2.3); Alkaline Phosphatase 98 U/L (39-117); Bilirubin,Direct 0.4 mg/dL (<0.3); Bilirubin,Total 0.9 mg/dL (0.1-1.0); Blood Urea Nitrogen 14 mg/dL (8-23); Calcium 8.8 mg/dL (8.6-10.4); Carbon Dioxide 24 mmol/L (22-30); Chloride 106 mmol/L (96-108); Globulin 2.6 gm/dL (2.2-3.7); Glomerular Filtration Rate 95; Glucose 191 mg/dL (70-105); Lactate Dehydrogenase 149 U/L (135-225); Triglycerides 84 mg/dL (<150); Uric Acid 2.3 mg/dL (2.5-8.0)
[2021-03-10] MEDS: ACYCLOVIR 400 MG TABLET PO SCH ×2 (08:35→20:24)
[2021-03-10] MEDS: LOSARTAN 50 MG TABLET PO SCH (08:35)
[2021-03-10] MEDS: INSULIN LISPRO 1 UNIT/0.01 ML UNIT SQ SCH ×4 (08:35→20:25)
[2021-03-10] MEDS: DOCUSATE SODIUM 100 MG CAPSULE PO SCH ×2 (08:35→20:27)
[2021-03-10] MEDS ORDERED: FILGRASTIM 300 MCG/ML VIAL SQ SCH (09:00)
[2021-03-10 09:01] LABS: Band Neutrophils % 24 % (0-10); Eosinophils % (Manual) 2 % (0-7); Lymphocytes % 36 % (15-49); Monocytes % (Manual) 7 % (1-12); Platelet Estimate MARKEDLY DECREASED (Normal); RBC Morphology NORMAL (Normal); Reactive Lymphocytes 1 % (0-2); Segmented Neutrophils % 30 % (38-78); Toxic Granulation 1+ (None Seen)
[2021-03-10] MEDS: VANCOMYCIN 1,500 MG in 0.9 % SODIUM CHLORIDE 500 ML IV SCH ×2 (09:18→20:29)
[2021-03-10 09:19] LABS: Hematocrit 24.2 % (41.0-55.0); Hemoglobin 8.4 g/dL (13.5-16.5); Mean Cell Volume 91.7 fL (80.0-100.0); Mean Corpuscular HGB Conc 34.7 g/dL (31.0-36.0); Mean Platelet Volume 11.3 fL (7.4-10.4); Platelet Count 29 K/mcL (140-440); RBC 2.64 M/mcL (4.50-5.90); Red Cell Distribution Width 14.5 % (11.5-14.5); WBC 0.4 K/mcL (4.5-11.0)
[2021-03-10] MEDS: ALPRAZolam 0.25 MG TABLET PO PRN ×2 (09:34→20:24)
[2021-03-10] MEDS ORDERED: MAGNESIUM SULFATE 2 GM/50 ML BAG IV ONE (10:26)
[2021-03-10] MEDS ORDERED: HEPARIN SODIUM,PORCINE/PF 500 UNIT/5 ML SYRINGE IV ONE (10:56)
--- NOTE | 2021-03-10 10:58 | Internal Med Progress Note ---
SUBJECTIVE Subjective Patient information: Note initiated : 03/10/21 at 10:53 am Service Date, if different from initiated Date: [] Patient: Kevin Randolph 70 y/o M admitted on 03/07/21 for weakness, neutropenic fever. Chief Complaint: [neutropenia fever] 03/09/21: Afebrile overnight. Absolute neutrophile count is 102 this morning. c/o chills. c/o left sided tremors. Denies fever or sweating. c/o general body weakness. Denies nausea or vomiting. 03/09/21: Afebrile overnight. Absolute neutrophile count is 216 this morning, up from 102 yesterday. c/o chills. c/o left sided tremors. Denies fever or sweating. Denies general body weakness. Denies nausea or vomiting. Constitutional Vitals: Vital Signs Temp Pulse Resp BP Pulse Ox 36.4 C 86 20 145/83 100 03/10/21 07:36 03/09/21 16:00 03/10/21 07:36 03/10/21 07:36 03/10/21 07:36 Period Temp Pulse Resp BP Sys/Quijano Pulse Ox Last 24 Hr 36.1 C-37.3 C 85-86 15-20 137-155/82-93 96-100 Intake and Output 03/09/21 03/10/21 03/10/21 21:59 05:59 13:59 Intake Total 770 1030 50 Output Total 300 1650 0 Balance 470 -620 50 Weight 83.779 kg Intake & Output: Intake & Output 03/09/21 03/10/21 03/10/21 21:59 05:59 13:59 Intake Total 770 1030 50 Output Total 300 1650 0 Balance 470 -620 50 Weight 83.779 kg Intake: Nourishment/Supplement quantity 240 (ml) IV 50 550 50 Zosyn 3.375 gm In Dextrose 5% 50 50 50 in Water 50 ml @ 100 mls/hr IV Q6H [facility] Rx#:[id number] Vancomycin 1,500 mg In Sodium 500 Chloride 0.9% 500 ml @ 333.3 mls/hr IV Q12H [facility] Rx#: [id number] Oral 480 480 Output: Void Amount 300 1650 # of times incontinent of urine 0 Other: Meal Dinner Percent of Meal Consumed 100% Feeding Ability Independent Nourishment/Supplement name Ensure Urine Appearance Clear Clear Urine Color Pale Pale Urine Odor Normal Normal # Voids 1 1 Neurological Exam Neurological exam: Present alert, CN II-XII intact and oriented X3 Additional comments: Increased left sided action tremors OBJ DATA Labs CBC & Chem 7: 03/10/21 04:57 03/10/21 04:57 Labs: Abnormal Lab Results 03/10/21 03/10/21 03/09/21 04:57 04:57 05:02 WBC 0.4 L* RBC 2.64 L Hgb 8.4 L Hct 24.2 L RDW Plt Count 29 L* MPV 11.3 H Seg Neutrophils % 30 L Band Neutrophils % 24 H Nucleated RBCs WBC Morphology Abnormal A Reactive Lymphocytes Toxic Granulation 1+ A Platelet Estimate Markedly decreased A RBC Morphology Hypochromasia Anisocytosis Potassium Carbon Dioxide Glucose 191 H 201 H Hemoglobin A1c Uric Acid 2.3 L 2.2 L Calcium 8.3 L Phosphorus 2.4 L Magnesium 1.5 L Direct Bilirubin 0.4 H 0.3 H GGT 178 H 138 H AST 48 H ALT 71 H 44 H Lactate Dehydrogenase C-Reactive Protein Total Protein 5.5 L 4.9 L Albumin 2.9 L 2.8 L Globulin 2.1 L Procalcitonin 03/09/21 03/08/21 03/08/21 05:02 08:20 08:20 WBC 0.2 L* RBC 2.31 L Hgb 7.3 L Hct 21.3 L RDW 14.6 H Plt Count 28 L* MPV Seg Neutrophils % 32 L Band Neutrophils % 19 H Nucleated RBCs WBC Morphology Reactive Lymphocytes Toxic Granulation Platelet Estimate Markedly decreased A RBC Morphology Abnormal A Hypochromasia 1+ A Anisocytosis Potassium Carbon Dioxide 20 L Glucose 200 H Hemoglobin A1c 7.4 H Uric Acid Calcium Phosphorus Magnesium Direct Bilirubin 0.3 H GGT 163 H AST ALT 42 H Lactate Dehydrogenase C-Reactive Protein Total Protein 5.1 L Albumin 2.9 L Globulin Procalcitonin 03/08/21 03/08/21 03/08/21 08:20 08:20 08:20 WBC 0.3 L* RBC 2.21 L Hgb 7.1 L Hct 21.2 L RDW 14.9 H Plt Count 6 L* MPV Seg Neutrophils % 37 L Band Neutrophils % 17 H Nucleated RBCs 3 H WBC Morphology Reactive Lymphocytes 4 H Toxic Granulation Platelet Estimate Decreased A RBC Morphology Abnormal A Hypochromasia 2+ A Anisocytosis 1+ A Potassium Carbon Dioxide Glucose Hemoglobin A1c Uric Acid Calcium Phosphorus Magnesium Direct Bilirubin GGT AST ALT Lactate Dehydrogenase C-Reactive Protein 6.40 H Total Protein Albumin Globulin Procalcitonin 0.60 H 03/07/21 22:41 WBC RBC Hgb Hct RDW Plt Count MPV Seg Neutrophils % Band Neutrophils % Nucleated RBCs WBC Morphology Reactive Lymphocytes Toxic Granulation Platelet Estimate RBC Morphology Hypochromasia Anisocytosis Potassium 5.2 H Carbon Dioxide 19 L Glucose 372 H Hemoglobin A1c Uric Acid Calcium 8.3 L Phosphorus Magnesium Direct Bilirubin 0.3 H GGT 172 H AST ALT 42 H Lactate Dehydrogenase 131 L C-Reactive Protein Total Protein 5.1 L Albumin 3.1 L Globulin 2.0 L Procalcitonin Meds: Medications Acetaminophen (Acetaminophen 325 Mg Tablet) 650 mg PO Q6HP PRN PRN Reason: PAIN/FEVER > 101 Last Admin: 03/10/21 05:05 Dose: 650 mg Documented by: Acyclovir (Acyclovir 400 Mg Tablet) 800 mg PO BID [facility]; Protocol Last Admin: 03/10/21 08:35 Dose: 800 mg Documented by: Albuterol/Ipratropium (Ipratropium/Albuterol 3 Ml Ampul.Neb) 3 ml NEB Q4HP PRN PRN Reason: Shortness Of Breath Alprazolam (Alprazolam 0.25 Mg Tablet) 0.25 mg PO BIDP PRN PRN Reason: Anxiety Last Admin: 03/10/21 09:34 Dose: 0.25 mg Documented by: Dextrose (Dextrose 50% 50 Ml Vial) 0 ml IV UD PRN PRN Reason: Hypoglycemia Diagnostic Test (Pha) (Accu-Chek 1 Each Strip) 1 each FS [facility] Last Admin: 03/10/21 07:34 Dose: 1 each Documented by: Docusate Sodium (Docusate Sodium 100 Mg Capsule) 100 mg PO BID [facility] Last Admin: 03/10/21 08:35 Dose: 100 mg Documented by: Glucose (Dextrose 31 Gm Oral.Susp) 15 gm PO PRN PRN PRN Reason: Hypoglycemia Heparin Sodium (Porcine) (Heparin Flush 10 Units/Ml 5 Ml Syringe) 5 ml IV Q12 S Last Admin: 03/09/21 20:28 Dose: 5 ml Documented by: Levofloxacin (Levaquin) 750 mg in 150 mls @ 100 mls/hr IV Q24H [facility] Magnesium Sulfate (Magnesium Sulfate) 2 gm in 50 mls @ 50 mls/hr IV UD PRN PRN Reason: Magnesium </= 1.6 Piperacillin Sod/Tazobactam (Sod 3.375 gm/ Dextrose) 50 mls @ 100 mls/hr IV Q6H [facility]; Protocol Last Infusion: 03/10/21 06:28 Dose: Infused Documented by: Vancomycin HCl 1,500 mg/ (Sodium Chloride) 500 mls @ 333.3 mls/hr IV Q12H [facility] Last Admin: 03/10/21 09:18 Dose: 333.3 mls/hr Documented by: Potassium Chloride 40 meq/ (Dextrose) 520 mls @ 130 mls/hr IV UD PRN PRN Reason: Potassium < 3 Magnesium Sulfate (Magnesium Sulfate) 2 gm in 50 mls @ 25 mls/hr IV ONCE ONE Stop: 03/10/21 12:25 Last Admin: 03/10/21 10:42 Dose: 25 mls/hr Documented by: Insulin Human Lispro (Insulin Lispro 1 Unit/0.01 Ml Unit) 0 unit SQ ACHS [facility]; Protocol Last Admin: 03/10/21 08:35 Dose: 6 units Documented by: Labetalol HCl (Labetalol 5 Mg/Ml Ml) 0 mg IV Q2HP PRN PRN Reason: Hypertension Last Admin: 03/10/21 05:06 Dose: 10 mg Documented by: Losartan Potassium (Losartan 50 Mg Tablet) 50 mg PO DAILY [facility] Last Admin: 03/10/21 08:35 Dose: 50 mg Documented by: Metoclopramide HCl (Metoclopramide 10 Mg/2 Ml Vial) 10 mg IV Q6HP PRN PRN Reason: Nausea And Vomiting Ondansetron HCl (Ondansetron 4 Mg/2 Ml Vial) 4 mg IV Q4HP PRN PRN Reason: Nausea And Vomiting Pantoprazole Sodium (Pantoprazole 40 Mg Packet) 40 mg PO QAMAC [facility] Last Admin: 03/10/21 07:35 Dose: Not Given Documented by: Cyanocobalamin ( Vitamin B-12) 50 Mcg Tablet 1 dose PO QDAY [facility] Last Admin: 03/10/21 09:35 Dose: Not Given Documented by: Potassium Chloride (Potassium Chloride 20 Meq Tablet) 40 meq PO UD PRN PRN Reason: Potssium is 3-3.5 Potassium Chloride (Potassium Chloride 20 Meq Tablet) 40 meq PO UD PRN PRN Reason: Potassium < 3 Prochlorperazine (Prochlorperazine 10 Mg/2 Ml Vial) 5 mg IV Q4-6HP PRN PRN Reason: Nausea And Vomiting Senna (Sennosides 1 Tablet) 2 tab PO DAILYP PRN PRN Reason: Constipation Sodium Chloride (0.9 % Sodium Chloride 10 Ml Syringe) 10 ml IV Q8 [facility] Last Admin: 03/10/21 05:58 Dose: 10 ml Documented by: Vancomycin HCl (Vancomycin Per Pharmacy) 1 order IV UD [facility]; Protocol A/P Assessment and plan (1) Neutropenia with fever: Status: Acute (2) MDS (myelodysplastic syndrome): Status: Acute (3) AML (acute myeloblastic leukemia): Status: Acute (4) Pancytopenia: Status: Acute (5) Essential (primary) hypertension: Status: Acute (6) T2DM (type 2 diabetes mellitus): Status: Acute (7) Benign essential tremor: Status: Acute (8) Hypomagnesemia: Status: Acute Narrative A/P Narrative: Assessment and Plans: 1. Neutropenic fever: Granix cbc w/ auto diff daily to trend WBC and ANC Repeat Blood culture X2, no growth to date Neutropenic precautions Consult Dr. Krishna, recs. appreciated Vancomycin Zosyn Levaquin 2. h/o AML/MDS: Dr. Roberts spoke with oncologist, who agreed on current choice of antibiotics Neupogen Neutropenic precautions cbc w/ auto diff daily to trend WBC and ANC 3. Benign essential Tremors: DDx: secondary to infection Continue to treat for (any) underlying infection, see #1 4. T2DM: Hold oral hypoglycemics Continue correctional scale insulin AC HS Accu Chek AC HS Hypoglycemia protocol Diabetic diet 5. Essential HTN: Currently normotensive 6. Hypomagnesemia: Serum Mg level 1.5 on 03/10/21 Mg IV replacement today, repeat serum Mg level in the morning and repeat replacement as needed GI ppx: oral PPI DVT ppx: SCDs Code status: Full Prognosis: guarded Disposition: transfer to inpatient med surg Time Spent With Patient Time: Total time spent is greater than 50% in coordination of care (as documented) at patient's floor/unit and/or counseling patient: Total time spent with greater than 50% in coordination of care (as documented) at patient's floor/unit and/or counseling patient:: 15 - 24 minutes QUALITY Stroke Symptom Onset Unknown: No VTE Deep Vein Thrombosis/Pulmonary Embolism Present on Admission: No
[2021-03-10] MEDS: TBO-FILGRASTIM 300 MCG/0.5 ML SYRINGE SQ SCH (11:23)
--- NOTE | 2021-03-10 12:13 | EKG ---
[facility] Test Date: 2021-03-08 Pat Name: Kevin Randolph Department: RT Room: Gender: Male Locksmith: : 1950 Requested By: Segundo Roberts Order Number: [id number] Reading MD: Carlitos Burciaga M.D. Measurements Intervals [place] Rate: 78 P: 42 TN: 200 QRS: -44 QRSD: 156 T: -9 QT: 452 QTc: 515 Interpretive Statements SINUS RHYTHM RIGHT BUNDLE BRANCH BLOCK NO PRIOR TRACING FOR COMPARISON ABNORMAL ECG Electronically Signed On 03-10-2021 12:13:29 PDT by Carlitos Burciaga M.D. /[email or web address]/[email or web address]/[id number]
[2021-03-10] MEDS: LEVOFLOXACIN 750 MG/150 ML BAG IV SCH (12:55)
[2021-03-11] MEDS: 0.9 % SODIUM CHLORIDE 10 ML SYRINGE IV SCH ×5 (00:22→20:35)
[2021-03-11] MEDS: PIPERACILLIN SODIUM/TAZOBACTAM 3.375 GM in DEXTROSE 5% IN WATER 50 ML IV SCH ×4 (00:23→17:45)
[2021-03-11 07:06] LABS: Hematocrit 22.2 % (41.0-55.0); Hemoglobin 7.7 g/dL (13.5-16.5); Mean Cell Volume 91.7 fL (80.0-100.0); Mean Corpuscular HGB Conc 34.7 g/dL (31.0-36.0); Mean Platelet Volume 12.2 fL (7.4-10.4); Platelet Count 18 K/mcL (140-440); RBC 2.42 M/mcL (4.50-5.90); Red Cell Distribution Width 14.6 % (11.5-14.5); WBC 0.3 K/mcL (4.5-11.0)
[2021-03-11 07:23] LABS: ALT/SGPT 61 U/L (<40); AST/SGOT 29 U/L (<40); Albumin 2.9 gm/dL (3.2-5.2); Albumin/Globulin Ratio 1.3 (1.0-2.3); Alkaline Phosphatase 89 U/L (39-117); Bilirubin,Direct 0.4 mg/dL (<0.3); Bilirubin,Total 0.9 mg/dL (0.1-1.0); Blood Urea Nitrogen 12 mg/dL (8-23); Calcium 8.8 mg/dL (8.6-10.4); Carbon Dioxide 26 mmol/L (22-30); Chloride 106 mmol/L (96-108); Globulin 2.3 gm/dL (2.2-3.7); Glomerular Filtration Rate 95; Glucose 197 mg/dL (70-105); Lactate Dehydrogenase 128 U/L (135-225); Triglycerides 56 mg/dL (<150); Uric Acid 2.1 mg/dL (2.5-8.0)
[2021-03-11] MEDS: PANTOPRAZOLE 40 MG PACKET PO SCH ×2 (07:45→07:55)
[2021-03-11 08:51] LABS: Band Neutrophils % 26 % (0-10); Dohle Bodies 1+ (None Seen); Eosinophils % (Manual) 4 % (0-7); Hypochromasia 1+ (None Seen); Lymphocytes % 26 % (15-49); Metamyelocytes % 2 %; Monocytes % (Manual) 11 % (1-12); Platelet Estimate MARKEDLY DECREASED (Normal); RBC Fragments FEW (None Seen); RBC Morphology ABNORMAL (Normal); Segmented Neutrophils % 31 % (38-78); Toxic Granulation FEW (None Seen)
[2021-03-11] MEDS: VANCOMYCIN 1,500 MG in 0.9 % SODIUM CHLORIDE 500 ML IV SCH ×2 (09:00→20:40)
--- NOTE | 2021-03-11 09:14 | Internal Med Progress Note ---
SUBJECTIVE Subjective Patient information: Note initiated : 03/11/21 at 9:07 am Service Date, if different from initiated Date: [] Patient: Kevin Randolph 70 y/o M admitted on 03/07/21 for weakness, neutropenic fever. Chief Complaint: [Neutropenic fever] 03/09/21: Afebrile overnight. Absolute neutrophile count is 102 this morning. c/o chills. c/o left sided tremors. Denies fever or sweating. c/o general body weakness. Denies nausea or vomiting. 03/10/21: Afebrile overnight. Absolute neutrophile count is 216 this morning, up from 102 yesterday. c/o chills. c/o left sided tremors. Denies fever or sweating. Denies general body weakness. Denies nausea or vomiting. 03/11/21: Afebrile overnight. Absolute neutrophile count is 171 this morning, down from 216 yesterday. Platelet count 18, down from 29 yesterday. Denies nosebleed or hematemesis or bloody stool. Denies pain or discomfort. Denies fever, chill, or sweating. Constitutional Vitals: Vital Signs Temp Pulse Resp BP Pulse Ox 36.7 C 94 H 20 142/79 97 03/11/21 07:42 03/10/21 16:43 03/11/21 07:42 03/11/21 07:42 03/11/21 07:42 Period Temp Pulse Resp BP Sys/Quijano Pulse Ox Last 24 Hr 36.3 C-37.4 C 94 16-20 132-169/74-98 93-100 Intake and Output 03/10/21 03/11/21 03/11/21 21:59 05:59 13:59 Intake Total 920 790 50 Output Total 525 300 375 Balance 395 490 -325 Weight 82.962 kg Intake & Output: Intake & Output 03/10/21 03/11/21 03/11/21 21:59 05:59 13:59 Intake Total 920 790 50 Output Total 525 300 375 Balance 395 490 -325 Weight 82.962 kg Intake: Nourishment/Supplement quantity 240 (ml) IV 200 550 50 Zosyn 3.375 gm In Dextrose 5% 50 50 50 in Water 50 ml @ 100 mls/hr IV Q6H [facility] Rx#:[id number] Vancomycin 1,500 mg In Sodium 500 Chloride 0.9% 500 ml @ 333.3 mls/hr IV Q12H [facility] Rx#: [id number] Oral 480 240 Output: Void Amount 525 300 375 Other: Meal Dinner Percent of Meal Consumed 90% Feeding Ability Independent Urine Appearance Clear Clear Clear Urine Color Bright Yellow Bright Yellow Bright Yellow Urine Odor Normal Stool Size Moderate Stool Color Brown Stool Consistency Loose General appearance: cooperative and no acute distress Head Head exam: Present atraumatic and normocephalic Eye Eye exam: Present EOMI and PERRL ENT ENT exam: Present mucous membranes moist, normal exam and normal external ear exam Neck Neck exam: Present normal inspection; Absent lymphadenopathy, tenderness and thyromegaly Respiratory Respiratory exam: Absent accessory muscle use, respiratory distress and wheezes Cardiovascular Cardiovascular exam: Present normal rate and rhythm; Absent JVD GI/Abdominal GI/Abdominal exam: Present normal bowel sounds and soft; Absent organomegaly and tenderness Rectal Rectal exam: Present deferred Extremities Exam Extremities exam: Present full ROM, normal capillary refill and normal inspection; Absent tenderness Neurological Exam Neurological exam: Present alert, CN II-XII intact and oriented X3; Absent motor sensory deficit Psychiatric Psychiatric exam: Present normal affect and normal mood; Absent anxious and depressed Skin Skin exam: Present dry and intact OBJ DATA Labs CBC & Chem 7: 03/11/21 04:56 03/11/21 04:56 Labs: Abnormal Lab Results 03/11/21 03/11/21 03/10/21 04:56 04:56 04:57 WBC 0.3 L* RBC 2.42 L Hgb 7.7 L Hct 22.2 L RDW 14.6 H Plt Count 18 L* MPV 12.2 H Seg Neutrophils % 31 L Band Neutrophils % 26 H Nucleated RBCs WBC Morphology Abnormal A Reactive Lymphocytes Toxic Granulation Few A Dohle Bodies 1+ A Platelet Estimate Markedly decreased A RBC Morphology Abnormal A Hypochromasia 1+ A Anisocytosis RBC Fragments Few A Carbon Dioxide Glucose 197 H 191 H Hemoglobin A1c Uric Acid 2.1 L 2.3 L Calcium Phosphorus Magnesium 1.5 L Direct Bilirubin 0.4 H 0.4 H GGT 168 H 178 H AST 48 H ALT 61 H 71 H Lactate Dehydrogenase 128 L C-Reactive Protein Total Protein 5.2 L 5.5 L Albumin 2.9 L 2.9 L Globulin Procalcitonin 03/10/21 03/09/21 03/09/21 04:57 05:02 05:02 WBC 0.4 L* 0.2 L* RBC 2.64 L 2.31 L Hgb 8.4 L 7.3 L Hct 24.2 L 21.3 L RDW 14.6 H Plt Count 29 L* 28 L* MPV 11.3 H Seg Neutrophils % 30 L 32 L Band Neutrophils % 24 H 19 H Nucleated RBCs WBC Morphology Abnormal A Reactive Lymphocytes Toxic Granulation 1+ A Dohle Bodies Platelet Estimate Markedly decreased A Markedly decreased A RBC Morphology Abnormal A Hypochromasia 1+ A Anisocytosis RBC Fragments Carbon Dioxide Glucose 201 H Hemoglobin A1c Uric Acid 2.2 L Calcium 8.3 L Phosphorus 2.4 L Magnesium Direct Bilirubin 0.3 H GGT 138 H AST ALT 44 H Lactate Dehydrogenase C-Reactive Protein Total Protein 4.9 L Albumin 2.8 L Globulin 2.1 L Procalcitonin 03/08/21 03/08/21 03/08/21 08:20 08:20 08:20 WBC RBC Hgb Hct RDW Plt Count MPV Seg Neutrophils % Band Neutrophils % Nucleated RBCs WBC Morphology Reactive Lymphocytes Toxic Granulation Dohle Bodies Platelet Estimate RBC Morphology Hypochromasia Anisocytosis RBC Fragments Carbon Dioxide 20 L Glucose 200 H Hemoglobin A1c 7.4 H Uric Acid Calcium Phosphorus Magnesium Direct Bilirubin 0.3 H GGT 163 H AST ALT 42 H Lactate Dehydrogenase C-Reactive Protein Total Protein 5.1 L Albumin 2.9 L Globulin Procalcitonin 0.60 H 03/08/21 03/08/21 08:20 08:20 WBC 0.3 L* RBC 2.21 L Hgb 7.1 L Hct 21.2 L RDW 14.9 H Plt Count 6 L* MPV Seg Neutrophils % 37 L Band Neutrophils % 17 H Nucleated RBCs 3 H WBC Morphology Reactive Lymphocytes 4 H Toxic Granulation Dohle Bodies Platelet Estimate Decreased A RBC Morphology Abnormal A Hypochromasia 2+ A Anisocytosis 1+ A RBC Fragments Carbon Dioxide Glucose Hemoglobin A1c Uric Acid Calcium Phosphorus Magnesium Direct Bilirubin GGT AST ALT Lactate Dehydrogenase C-Reactive Protein 6.40 H Total Protein Albumin Globulin Procalcitonin Meds: Medications Acetaminophen (Acetaminophen 325 Mg Tablet) 650 mg PO Q6HP PRN PRN Reason: PAIN/FEVER > 101 Last Admin: 03/10/21 20:26 Dose: 650 mg Documented by: Acyclovir (Acyclovir 400 Mg Tablet) 800 mg PO BID [facility]; Protocol Last Admin: 03/10/21 20:24 Dose: 800 mg Documented by: Albuterol/Ipratropium (Ipratropium/Albuterol 3 Ml Ampul.Neb) 3 ml NEB Q4HP PRN PRN Reason: Shortness Of Breath Alprazolam (Alprazolam 0.25 Mg Tablet) 0.25 mg PO BIDP PRN PRN Reason: Anxiety Last Admin: 03/10/21 20:24 Dose: 0.25 mg Documented by: Dextrose (Dextrose 50% 50 Ml Vial) 0 ml IV UD PRN PRN Reason: Hypoglycemia Diagnostic Test (Pha) (Accu-Chek 1 Each Strip) 1 each FS ACHS [facility] Last Admin: 03/11/21 07:54 Dose: 1 each Documented by: Docusate Sodium (Docusate Sodium 100 Mg Capsule) 100 mg PO BID [facility] Last Admin: 03/10/21 20:27 Dose: Not Given Documented by: Glucose (Dextrose 31 Gm Oral.Susp) 15 gm PO PRN PRN PRN Reason: Hypoglycemia Heparin Sodium (Porcine) (Heparin Flush 10 Units/Ml 5 Ml Syringe) 5 ml IV Q12 [facility] Last Admin: 03/10/21 20:25 Dose: 5 ml Documented by: Levofloxacin (Levaquin) 750 mg in 150 mls @ 100 mls/hr IV Q24H [facility] Last Infusion: 03/10/21 14:38 Dose: Infused Documented by: Magnesium Sulfate (Magnesium Sulfate) 2 gm in 50 mls @ 50 mls/hr IV UD PRN PRN Reason: Magnesium </= 1.6 Piperacillin Sod/Tazobactam (Sod 3.375 gm/ Dextrose) 50 mls @ 100 mls/hr IV Q6H [facility]; Protocol Last Infusion: 03/11/21 06:33 Dose: Infused Documented by: Vancomycin HCl 1,500 mg/ (Sodium Chloride) 500 mls @ 333.3 mls/hr IV Q12H [facility] Last Infusion: 03/10/21 22:08 Dose: Infused Documented by: Potassium Chloride 40 meq/ (Dextrose) 520 mls @ 130 mls/hr IV UD PRN PRN Reason: Potassium < 3 Sodium Chloride (Sodium Chloride 0.9%) 250 mls @ 20 mls/hr IV .[id number] [facility] Stop: 03/11/21 21:44 Insulin Human Lispro (Insulin Lispro 1 Unit/0.01 Ml Unit) 0 unit SQ [facility]; Protocol Last Admin: 03/10/21 20:25 Dose: 6 units Documented by: Labetalol HCl (Labetalol 5 Mg/Ml Ml) 0 mg IV Q2HP PRN PRN Reason: Hypertension Last Admin: 03/10/21 05:06 Dose: 10 mg Documented by: Losartan Potassium (Losartan 50 Mg Tablet) 50 mg PO DAILY [facility] Last Admin: 03/10/21 08:35 Dose: 50 mg Documented by: Metoclopramide HCl (Metoclopramide 10 Mg/2 Ml Vial) 10 mg IV Q6HP PRN PRN Reason: Nausea And Vomiting Ondansetron HCl (Ondansetron 4 Mg/2 Ml Vial) 4 mg IV Q4HP PRN PRN Reason: Nausea And Vomiting Pantoprazole Sodium (Pantoprazole 40 Mg Packet) 40 mg PO QAMAC [facility] Last Admin: 03/11/21 07:55 Dose: Not Given Documented by: Cyanocobalamin ( Vitamin B-12) 50 Mcg Tablet 1 dose PO QDAY [facility] Last Admin: 03/10/21 09:35 Dose: Not Given Documented by: Potassium Chloride (Potassium Chloride 20 Meq Tablet) 40 meq PO UD PRN PRN Reason: Potssium is 3-3.5 Potassium Chloride (Potassium Chloride 20 Meq Tablet) 40 meq PO UD PRN PRN Reason: Potassium < 3 Prochlorperazine (Prochlorperazine 10 Mg/2 Ml Vial) 5 mg IV Q4-6HP PRN PRN Reason: Nausea And Vomiting Senna (Sennosides 1 Tablet) 2 tab PO DAILYP PRN PRN Reason: Constipation Sodium Chloride (0.9 % Sodium Chloride 10 Ml Syringe) 10 ml IV Q8 [facility] Last Admin: 03/11/21 06:00 Dose: 10 ml Documented by: Vancomycin HCl (Vancomycin Per Pharmacy) 1 order IV [facility]; Protocol A/P Assessment and plan (1) Neutropenia with fever: Status: Acute (2) MDS (myelodysplastic syndrome): Status: Acute (3) AML (acute myeloblastic leukemia): Status: Acute (4) Pancytopenia: Status: Acute (5) Essential (primary) hypertension: Status: Acute (6) T2DM (type 2 diabetes mellitus): Status: Acute (7) Benign essential tremor: Status: Acute (8) Hypomagnesemia: Status: Acute Narrative A/P Narrative: Assessment and Plans: 1. Neutropenic fever: Granix cbc w/ auto diff daily to trend WBC and ANC Repeat Blood culture X2, no growth to date Neutropenic precautions Consult Dr. Krishna, recs. appreciated Vancomycin Zosyn Levaquin 2. h/o AML/MDS with curtis-cytopenia Dr. Roberts spoke with oncologist, who agreed on current choice of antibiotics Granix Neutropenic precautions cbc w/ auto diff daily to trend WBC and ANC Platelet transfusion, 2 unit, prophylaxis 3. Benign essential Tremors: DDx: secondary to infection Continue to treat for (any) underlying infection, see #1 4. T2DM: Hold oral hypoglycemics Continue correctional scale insulin AC HS Accu Chek AC HS Hypoglycemia protocol Diabetic diet 5. Essential HTN: Currently normotensive 6. Hypomagnesemia: RESOLVED Serum Mg level 1.5 on 03/10/21, 1.8 on 03/11/21 Repeat serum Mg level in the morning and repeat Mg replacement as needed GI ppx: oral PPI DVT ppx: SCDs Code status: Full Prognosis: guarded Disposition: transfer to inpatient med surg Time Spent With Patient Time: Total time spent is greater than 50% in coordination of care (as documented) at patient's floor/unit and/or counseling patient: QUALITY Stroke Symptom Onset Unknown: No VTE Deep Vein Thrombosis/Pulmonary Embolism Present on Admission: No
[2021-03-11] MEDS ORDERED: 0.9 % SODIUM CHLORIDE 250 ML IV SCH (09:15)
[2021-03-11] MEDS: LOSARTAN 50 MG TABLET PO SCH (09:51)
[2021-03-11] MEDS: DOCUSATE SODIUM 100 MG CAPSULE PO SCH ×2 (09:51→20:42)
[2021-03-11] MEDS: INSULIN LISPRO 1 UNIT/0.01 ML UNIT SQ SCH ×4 (09:53→21:04)
[2021-03-11] MEDS: ACYCLOVIR 400 MG TABLET PO SCH ×2 (09:56→20:42)
[2021-03-11] MEDS: TBO-FILGRASTIM 300 MCG/0.5 ML SYRINGE SQ SCH (09:56)
[2021-03-11] MEDS: LEVOFLOXACIN 750 MG/150 ML BAG IV SCH (11:44)
[2021-03-11] MEDS: LABETALOL 5 MG/ML ML IV PRN ×2 (14:45→17:45)
[2021-03-11] MEDS: ACETAMINOPHEN 325 MG TABLET PO PRN (17:45)
[2021-03-11] MEDS: ALPRAZolam 0.25 MG TABLET PO PRN (20:49)
[2021-03-12] MEDS: PIPERACILLIN SODIUM/TAZOBACTAM 3.375 GM in DEXTROSE 5% IN WATER 50 ML IV SCH ×4 (00:15→17:56)
[2021-03-12] MEDS: ACETAMINOPHEN 325 MG TABLET PO PRN ×3 (00:54→16:56)
[2021-03-12] MEDS: LABETALOL 5 MG/ML ML IV PRN ×2 (00:55→16:56)
[2021-03-12] MEDS: 0.9 % SODIUM CHLORIDE 10 ML SYRINGE IV SCH ×3 (06:00→21:05)
[2021-03-12 07:46] LABS: Hematocrit 21.4 % (41.0-55.0); Hemoglobin 7.3 g/dL (13.5-16.5); Mean Cell Volume 93.4 fL (80.0-100.0); Mean Corpuscular HGB Conc 34.1 g/dL (31.0-36.0); Mean Platelet Volume 10.8 fL (7.4-10.4); Platelet Count 34 K/mcL (140-440); RBC 2.29 M/mcL (4.50-5.90); Red Cell Distribution Width 14.7 % (11.5-14.5); WBC 0.4 K/mcL (4.5-11.0)
[2021-03-12] MEDS: PANTOPRAZOLE 40 MG PACKET PO SCH (07:51)
[2021-03-12 08:10] LABS: Band Neutrophils % 22 % (0-10); Dohle Bodies 1+ (None Seen); Eosinophils % (Manual) 2 % (0-7); Hypochromasia 1+ (None Seen); Lymphocytes % 40 % (15-49); Monocytes % (Manual) 6 % (1-12); Platelet Estimate MARKEDLY DECREASED (Normal); RBC Morphology ABNORMAL (Normal); Segmented Neutrophils % 30 % (38-78); Toxic Granulation 1+ (None Seen)
[2021-03-12] MEDS: DOCUSATE SODIUM 100 MG CAPSULE PO SCH ×2 (08:11→21:04)
[2021-03-12] MEDS: VANCOMYCIN 1,500 MG in 0.9 % SODIUM CHLORIDE 500 ML IV SCH ×2 (08:36→21:00)
[2021-03-12] MEDS: ACYCLOVIR 400 MG TABLET PO SCH ×2 (08:36→21:04)
[2021-03-12] MEDS: LOSARTAN 50 MG TABLET PO SCH (08:37)
[2021-03-12] MEDS: INSULIN LISPRO 1 UNIT/0.01 ML UNIT SQ SCH ×4 (08:37→21:03)
[2021-03-12] MEDS: TBO-FILGRASTIM 300 MCG/0.5 ML SYRINGE SQ SCH (08:58)
[2021-03-12] MEDS: LEVOFLOXACIN 750 MG/150 ML BAG IV SCH (10:23)
--- NOTE | 2021-03-12 10:49 | Internal Med Progress Note ---
SUBJECTIVE Subjective Patient information: Note initiated : 03/12/21 at 10:46 am Service Date, if different from initiated Date: [] Patient: Kevin Randolph 70 y/o M admitted on 03/07/21 for weakness, neutropenic fever. Chief Complaint: [neutrophilic fever] 03/09/21: Afebrile overnight. Absolute neutrophile count is 102 this morning. c/o chills. c/o left sided tremors. Denies fever or sweating. c/o general body weakness. Denies nausea or vomiting. 03/10/21: Afebrile overnight. Absolute neutrophile count is 216 this morning, up from 102 yesterday. c/o chills. c/o left sided tremors. Denies fever or sweating. Denies general body weakness. Denies nausea or vomiting. 03/11/21: Afebrile overnight. Absolute neutrophile count is 171 this morning, down from 216 yesterday. Platelet count 18, down from 29 yesterday. Denies nosebleed or hematemesis or bloody stool. Denies pain or discomfort. Denies fever, chill, or sweating. 03/12/21: Afebrile overnight. ANC 208 this morning, up from 171 yesterday. Received 2 unit plt transfusion yesterday, plt count 18-->34. Denies nosebleed or hematemesis or bloody stool. Denies pain or discomfort. Denies fever, chill, or sweating. Constitutional Vitals: Vital Signs Temp Pulse Resp BP Pulse Ox 36.9 C 85 15 137/78 95 03/12/21 07:51 03/12/21 07:51 03/12/21 07:51 03/12/21 07:51 03/12/21 07:51 Period Temp Pulse Resp BP Sys/Quijano Pulse Ox Last 24 Hr 36.3 C-37.4 C 69-86 15-19 137-159/75-95 93-98 Intake and Output 03/11/21 03/12/21 03/12/21 21:59 05:59 13:59 Intake Total 742 750 500 Output Total 300 Balance 442 750 500 Weight 82.554 kg Intake & Output: Intake & Output 03/11/21 03/12/21 03/12/21 21:59 05:59 13:59 Intake Total 742 750 500 Output Total 300 Balance 442 750 500 Weight 82.554 kg Intake: IV 102 550 500 Sodium Chloride 0.9% 250 ml @ 52 20 mls/hr IV .[id number] [facility] Rx#: [id number] Zosyn 3.375 gm In Dextrose 5% 50 50 in Water 50 ml @ 100 mls/hr IV Q6H [facility] Rx#:[id number] Vancomycin 1,500 mg In Sodium 500 500 Chloride 0.9% 500 ml @ 333.3 mls/hr IV Q12H [facility] Rx#: [id number] Oral 240 200 Blood Product 400 Output: Void Amount 300 # of times incontinent of urine 0 Other: Urine Appearance Clear Urine Color Bright Yellow Urine Odor Normal # Voids 2 2 General appearance: cooperative and no acute distress Head Head exam: Present atraumatic and normocephalic Eye Eye exam: Present EOMI and PERRL ENT ENT exam: Present mucous membranes moist, normal exam and normal external ear exam Neck Neck exam: Present normal inspection; Absent lymphadenopathy, tenderness and thyromegaly Respiratory Respiratory exam: Absent accessory muscle use, respiratory distress and wheezes Cardiovascular Cardiovascular exam: Present normal rate and rhythm; Absent JVD GI/Abdominal GI/Abdominal exam: Present normal bowel sounds and soft; Absent organomegaly and tenderness Rectal Rectal exam: Present deferred Extremities Exam Extremities exam: Present full ROM, normal capillary refill and normal inspection; Absent tenderness Neurological Exam Neurological exam: Present alert, CN II-XII intact and oriented X3; Absent motor sensory deficit Psychiatric Psychiatric exam: Present normal affect and normal mood; Absent anxious and depressed Skin Skin exam: Present dry and intact OBJ DATA Labs CBC & Chem 7: 03/12/21 05:31 03/11/21 04:56 Labs: Abnormal Lab Results 03/12/21 03/11/21 03/11/21 05:31 04:56 04:56 WBC 0.4 L* 0.3 L* RBC 2.29 L 2.42 L Hgb 7.3 L 7.7 L Hct 21.4 L 22.2 L RDW 14.7 H 14.6 H Plt Count 34 L* 18 L* MPV 10.8 H 12.2 H Seg Neutrophils % 30 L 31 L Band Neutrophils % 22 H 26 H WBC Morphology Abnormal A Abnormal A Toxic Granulation 1+ A Few A Dohle Bodies 1+ A 1+ A Platelet Estimate Markedly decreased A Markedly decreased A RBC Morphology Abnormal A Abnormal A Hypochromasia 1+ A 1+ A RBC Fragments Few A Glucose 197 H Uric Acid 2.1 L Magnesium Direct Bilirubin 0.4 H GGT 168 H AST ALT 61 H Lactate Dehydrogenase 128 L Total Protein 5.2 L Albumin 2.9 L 03/10/21 03/10/21 04:57 04:57 WBC 0.4 L* RBC 2.64 L Hgb 8.4 L Hct 24.2 L RDW Plt Count 29 L* MPV 11.3 H Seg Neutrophils % 30 L Band Neutrophils % 24 H WBC Morphology Abnormal A Toxic Granulation 1+ A Dohle Bodies Platelet Estimate Markedly decreased A RBC Morphology Hypochromasia RBC Fragments Glucose 191 H Uric Acid 2.3 L Magnesium 1.5 L Direct Bilirubin 0.4 H GGT 178 H AST 48 H ALT 71 H Lactate Dehydrogenase Total Protein 5.5 L Albumin 2.9 L Meds: Medications Acetaminophen (Acetaminophen 325 Mg Tablet) 650 mg PO Q6HP PRN PRN Reason: PAIN/FEVER > 101 Last Admin: 03/12/21 08:37 Dose: 650 mg Documented by: Acyclovir (Acyclovir 400 Mg Tablet) 800 mg PO BID [facility]; Protocol Last Admin: 03/12/21 08:36 Dose: 800 mg Documented by: Albuterol/Ipratropium (Ipratropium/Albuterol 3 Ml Ampul.Neb) 3 ml NEB Q4HP PRN PRN Reason: Shortness Of Breath Alprazolam (Alprazolam 0.25 Mg Tablet) 0.25 mg PO BIDP PRN PRN Reason: Anxiety Last Admin: 03/11/21 20:49 Dose: 0.25 mg Documented by: Dextrose (Dextrose 50% 50 Ml Vial) 0 ml IV UD PRN PRN Reason: Hypoglycemia Diagnostic Test (Pha) (Accu-Chek 1 Each Strip) 1 each FS ACHS [facility] Last Admin: 03/12/21 07:51 Dose: 1 each Documented by: Docusate Sodium (Docusate Sodium 100 Mg Capsule) 100 mg PO BID [facility] Last Admin: 03/12/21 08:11 Dose: Not Given Documented by: Glucose (Dextrose 31 Gm Oral.Susp) 15 gm PO PRN PRN PRN Reason: Hypoglycemia Heparin Sodium (Porcine) (Heparin Flush 10 Units/Ml 5 Ml Syringe) 5 ml IV Q12 [facility] Last Admin: 03/12/21 08:59 Dose: 5 ml Documented by: Levofloxacin (Levaquin) 750 mg in 150 mls @ 100 mls/hr IV Q24H [facility] Last Admin: 03/12/21 10:23 Dose: 100 mls/hr Documented by: Magnesium Sulfate (Magnesium Sulfate) 2 gm in 50 mls @ 50 mls/hr IV UD PRN PRN Reason: Magnesium </= 1.6 Piperacillin Sod/Tazobactam (Sod 3.375 gm/ Dextrose) 50 mls @ 100 mls/hr IV Q6H [facility]; Protocol Last Admin: 03/12/21 06:00 Dose: 100 mls/hr Documented by: Vancomycin HCl 1,500 mg/ (Sodium Chloride) 500 mls @ 333.3 mls/hr IV Q12H [facility] Last Infusion: 03/12/21 10:44 Dose: Infused Documented by: Potassium Chloride 40 meq/ (Dextrose) 520 mls @ 130 mls/hr IV UD PRN PRN Reason: Potassium < 3 Insulin Human Lispro (Insulin Lispro 1 Unit/0.01 Ml Unit) 0 unit SQ ACHS [facility]; Protocol Last Admin: 03/12/21 08:37 Dose: 6 units Documented by: Labetalol HCl (Labetalol 5 Mg/Ml Ml) 0 mg IV Q2HP PRN PRN Reason: Hypertension Last Admin: 03/12/21 00:55 Dose: 5 mg Documented by: Losartan Potassium (Losartan 50 Mg Tablet) 50 mg PO DAILY [facility] Last Admin: 03/12/21 08:37 Dose: 50 mg Documented by: Metoclopramide HCl (Metoclopramide 10 Mg/2 Ml Vial) 10 mg IV Q6HP PRN PRN Reason: Nausea And Vomiting Ondansetron HCl (Ondansetron 4 Mg/2 Ml Vial) 4 mg IV Q4HP PRN PRN Reason: Nausea And Vomiting Pantoprazole Sodium (Pantoprazole 40 Mg Packet) 40 mg PO QAMAC [facility] Last Admin: 03/12/21 07:51 Dose: Not Given Documented by: Cyanocobalamin ( Vitamin B-12) 50 Mcg Tablet 1 dose PO QDAY [facility] Last Admin: 03/12/21 08:12 Dose: Not Given Documented by: Potassium Chloride (Potassium Chloride 20 Meq Tablet) 40 meq PO UD PRN PRN Reason: Potssium is 3-3.5 Potassium Chloride (Potassium Chloride 20 Meq Tablet) 40 meq PO UD PRN PRN Reason: Potassium < 3 Prochlorperazine (Prochlorperazine 10 Mg/2 Ml Vial) 5 mg IV Q4-6HP PRN PRN Reason: Nausea And Vomiting Senna (Sennosides 1 Tablet) 2 tab PO DAILYP PRN PRN Reason: Constipation Sodium Chloride (0.9 % Sodium Chloride 10 Ml Syringe) 10 ml IV Q8 [facility] Last Admin: 03/12/21 06:00 Dose: 10 ml Documented by: Vancomycin HCl (Vancomycin Per Pharmacy) 1 order IV UD [facility]; Protocol A/P Assessment and plan (1) Neutropenia with fever: Status: Acute (2) MDS (myelodysplastic syndrome): Status: Acute (3) AML (acute myeloblastic leukemia): Status: Acute (4) Pancytopenia: Status: Acute (5) Essential (primary) hypertension: Status: Acute (6) T2DM (type 2 diabetes mellitus): Status: Acute (7) Benign essential tremor: Status: Acute (8) Hypomagnesemia: Status: Acute Narrative A/P Narrative: Assessment and Plans: 1. Neutropenic fever: Granix cbc w/ auto diff daily to trend WBC and ANC Repeat Blood culture X2, no growth to date Neutropenic precautions Consult Dr. Krishna, recs. appreciated Vancomycin Zosyn Levaquin 2. h/o AML/MDS with curtis-cytopenia Dr. Roberts spoke with oncologist, who agreed on current choice of antibiotics Granix Neutropenic precautions cbc w/ auto diff daily to trend WBC and ANC Platelet transfusion, 2 unit, prophylaxis perfomred on 03/11/21, plt count responded from 18-->34 3. Benign essential Tremors: DDx: secondary to infection Continue to treat for (any) underlying infection, see #1 4. T2DM: Hold oral hypoglycemics Continue correctional scale insulin HS Accu Chek [facility] Hypoglycemia protocol Diabetic diet 5. Essential HTN: Currently normotensive 6. Hypomagnesemia: RESOLVED Serum Mg level 1.7 on 03/12/21 Repeat serum Mg level in the morning and repeat Mg replacement as needed GI ppx: oral PPI DVT ppx: SCDs Code status: Full Prognosis: guarded Disposition: transfer to inpatient med surg Time Spent With Patient Time: Total time spent is greater than 50% in coordination of care (as documented) at patient's floor/unit and/or counseling patient: QUALITY Stroke Symptom Onset Unknown: No VTE Deep Vein Thrombosis/Pulmonary Embolism Present on Admission: No
[2021-03-13] MEDS: PIPERACILLIN SODIUM/TAZOBACTAM 3.375 GM in DEXTROSE 5% IN WATER 50 ML IV SCH ×4 (00:25→17:41)
[2021-03-13] MEDS: ACETAMINOPHEN 325 MG TABLET PO PRN ×3 (00:27→20:03)
[2021-03-13] MEDS: 0.9 % SODIUM CHLORIDE 10 ML SYRINGE IV SCH ×3 (05:44→20:04)
--- NOTE | 2021-03-13 07:09 | Infectious Disease Consult ---
HPI Data of Consult Consult date: 03/13/21 Primary Care Provider: Jayden Ordonez Consult Narrative Patient Information: Note initiated : 03/13/21 at 6:56 am Service Date, if different from initiated Date: [03/13/21] Patient: Kevin Randolph 70 y/o M admitted on 03/07/21 for weakness, neutropenic fever. Chief Complaint: [mild LOUIS] Kevin is a 70-year-old man with AML/MDS. He was admitted in the hospital on March 07 with shaking chills after receiving chemotherapy on that day. He is followed by Dr. Alfonso. He believes that this is his third or fourth cycle of chemotherapy. He received 5 days of chemotherapy every 5 weeks. He has previously been evaluated in [place] for bone marrow transplant and was not considered a candidate at that time 1 year ago. He had fever to 103 on admit with febrile neutropenia 30 segs 22 bands H&H 7.3/ and platelet count 34 March 12. He is currently on Vanco Zosyn. Vanco trough 15.2 on March 09. Creatinine 0.7 on March 11. His MRSA screen was - March 07.. Since admission his highest temperature has been 99.3. He denies fevers chills or shakes. Blood cultures were - March 09. He is ambulatory. He does not require supplemental O2. He reports several days of constipation prior to admission. Chest x-ray on March 08 suggested an asymmetric left lower lobe opacification. No complaints of cough or shortness of breath. He has had pneumonia as a child twice. Chest x-ray showed findings of COPD and pulmonary fibrosis. He has a right chest port in place. No urinary complaints. He has Band-Aids over each of his great toenails. No complaints of toe pain. He reports toenails are at risk of coming off from previous trauma. He has pancytopenia. White count 0.4 cc:: CC: Segundo Roberts Review of Systems Review of systems: General: No current complaints of fevers or chills. HEENT: Mild headache. No sore throat swallowing difficulties or oral lesions. No neck complaints or swollen lymph nodes. Pulmonary: No current cough or shortness of breath. Cardiac: No chest pain. Chest port without problems. GI: Constipation for several days prior to admission and not now. No complaints of abdominal pain. : No dysuria. No back complaints. Extremities: He has a history of left total knee arthroplasty. No knee pain. History of toenail injury bilateral great toenails with Band-Aids covering no toe pain. No drainage. Skin no complaints of rash. PFSH PFSH All Active Problems (Updated 03/13/21 @ 07:09 by Jayden Krishna MD) Hypomagnesemia (Acute) Benign essential tremor (Acute) T2DM (type 2 diabetes mellitus) (Acute) Essential (primary) hypertension (Acute) Neutropenia with fever (Acute) MDS (myelodysplastic syndrome) (Acute) AML (acute myeloblastic leukemia) (Acute) Pancytopenia (Acute) Social History (Updated 03/13/21 @ 07:02 by Jayden Krishna MD) pets and animals: No MEDS/ALLERGIES Home Medications and Allergies Home Medications Medication Instructions Recorded Confirmed Type acyclovir 800 mg PO BID 03/08/21 03/08/21 History albuterol [Proventil] 90 mcg INHALATION PRN PRN 03/08/21 03/08/21 History alprazolam 0.25 mg PO BID 03/08/21 03/08/21 History bisoprolol fumarate 5 mg PO QDAY 03/08/21 03/08/21 History cyanocobalamin (vitamin B-12) 50 mcg PO QDAY 03/08/21 03/08/21 History insulin degludec [Tresiba U-100 10 unit SUBCUT DAILY 03/08/21 03/08/21 History Insulin] losartan 50 mg PO DAILY 03/08/21 03/08/21 History magnesium oxide 400 mg PO BID 03/08/21 03/08/21 History metformin 500 mg PO BID 03/08/21 03/08/21 History multivitamin [Daily Multivitamin] 1 tab PO QDAY 03/08/21 03/08/21 History pantoprazole 40 mg PO DAILY 03/08/21 03/08/21 History prochlorperazine maleate 10 mg PO BID 03/08/21 03/08/21 History semaglutide [Ozempic] See Rx Instructions .ROUTE .COMPLEX 03/08/21 03/08/21 History Allergies Allergy/AdvReac Type Severity Reaction Status Date / Time No Known Drug Intolerances Allergy Unknown Verified 06/09/19 08:53 Physical Examination Vital Signs Vital signs: Temp Pulse Resp BP Pulse Ox 99.0 F 90 18 148/92 98 03/13/21 00:00 03/13/21 00:00 03/13/21 00:00 03/13/21 00:00 03/13/21 00:00 Additional Exam Additional exam: General: Nontoxic-appearing. No respiratory distress. HEENT: EOMI PERRL sclera anicteric teeth are in fair condition. No oral lesions or thrush. No lip ulcerations. Neck is supple no cervical adenopathy. Lungs are clear bilaterally without rales wheezing or rhonchi. Heart: Regular rate and rhythm without murmur. Abdomen: Soft nontender positive bowel sounds. No masses appreciated. Chest: Right chest port currently accessed no erythema. Extremities: No knee effusions. Bilateral great toenails covered with Band- Aids. Appear dystrophic no swelling redness or tenderness. No drainage from either toenail. No lower extremity edema. Skin without rash. Results Laboratory Findings CBC and BMP: 03/12/21 05:31 03/11/21 04:56 Abnormal lab findings: Abnormal Labs 03/07/21 03/08/21 03/08/21 22:41 08:20 08:20 WBC 0.3 L* RBC 2.21 L Hgb 7.1 L Hct 21.2 L RDW 14.9 H Plt Count 6 L* MPV Seg Neutrophils % 37 L Band Neutrophils % 17 H Nucleated RBCs 3 H WBC Morphology Reactive Lymphocytes 4 H Toxic Granulation Dohle Bodies Platelet Estimate Decreased A RBC Morphology Abnormal A Hypochromasia 2+ A Anisocytosis 1+ A RBC Fragments Potassium 5.2 H Carbon Dioxide 19 L Glucose 372 H Hemoglobin A1c Uric Acid Calcium 8.3 L Phosphorus Magnesium Direct Bilirubin 0.3 H GGT 172 H AST ALT 42 H Lactate Dehydrogenase 131 L C-Reactive Protein 6.40 H Total Protein 5.1 L Albumin 3.1 L Globulin 2.0 L Procalcitonin 03/08/21 03/08/21 03/08/21 08:20 08:20 08:20 WBC RBC Hgb Hct RDW Plt Count MPV Seg Neutrophils % Band Neutrophils % Nucleated RBCs WBC Morphology Reactive Lymphocytes Toxic Granulation Dohle Bodies Platelet Estimate RBC Morphology Hypochromasia Anisocytosis RBC Fragments Potassium Carbon Dioxide 20 L Glucose 200 H Hemoglobin A1c 7.4 H Uric Acid Calcium Phosphorus Magnesium Direct Bilirubin 0.3 H GGT 163 H AST ALT 42 H Lactate Dehydrogenase C-Reactive Protein Total Protein 5.1 L Albumin 2.9 L Globulin Procalcitonin 0.60 H 03/09/21 03/09/21 03/10/21 05:02 05:02 04:57 WBC 0.2 L* 0.4 L* RBC 2.31 L 2.64 L Hgb 7.3 L 8.4 L Hct 21.3 L 24.2 L RDW 14.6 H Plt Count 28 L* 29 L* MPV 11.3 H Seg Neutrophils % 32 L 30 L Band Neutrophils % 19 H 24 H Nucleated RBCs WBC Morphology Abnormal A Reactive Lymphocytes Toxic Granulation 1+ A Dohle Bodies Platelet Estimate Markedly decreased A Markedly decreased A RBC Morphology Abnormal A Hypochromasia 1+ A Anisocytosis RBC Fragments Potassium Carbon Dioxide Glucose 201 H Hemoglobin A1c Uric Acid 2.2 L Calcium 8.3 L Phosphorus 2.4 L Magnesium Direct Bilirubin 0.3 H GGT 138 H AST ALT 44 H Lactate Dehydrogenase C-Reactive Protein Total Protein 4.9 L Albumin 2.8 L Globulin 2.1 L Procalcitonin 03/10/21 03/11/21 03/11/21 04:57 04:56 04:56 WBC 0.3 L* RBC 2.42 L Hgb 7.7 L Hct 22.2 L RDW 14.6 H Plt Count 18 L* MPV 12.2 H Seg Neutrophils % 31 L Band Neutrophils % 26 H Nucleated RBCs WBC Morphology Abnormal A Reactive Lymphocytes Toxic Granulation Few A Dohle Bodies 1+ A Platelet Estimate Markedly decreased A RBC Morphology Abnormal A Hypochromasia 1+ A Anisocytosis RBC Fragments Few A Potassium Carbon Dioxide Glucose 191 H 197 H Hemoglobin A1c Uric Acid 2.3 L 2.1 L Calcium Phosphorus Magnesium 1.5 L Direct Bilirubin 0.4 H 0.4 H GGT 178 H 168 H AST 48 H ALT 71 H 61 H Lactate Dehydrogenase 128 L C-Reactive Protein Total Protein 5.5 L 5.2 L Albumin 2.9 L 2.9 L Globulin Procalcitonin 03/12/21 05:31 WBC 0.4 L* RBC 2.29 L Hgb 7.3 L Hct 21.4 L RDW 14.7 H Plt Count 34 L* MPV 10.8 H Seg Neutrophils % 30 L Band Neutrophils % 22 H Nucleated RBCs WBC Morphology Abnormal A Reactive Lymphocytes Toxic Granulation 1+ A Dohle Bodies 1+ A Platelet Estimate Markedly decreased A RBC Morphology Abnormal A Hypochromasia 1+ A Anisocytosis RBC Fragments Potassium Carbon Dioxide Glucose Hemoglobin A1c Uric Acid Calcium Phosphorus Magnesium Direct Bilirubin GGT AST ALT Lactate Dehydrogenase C-Reactive Protein Total Protein Albumin Globulin Procalcitonin Microbiology: Microbiology 03/09/21 11:25 Blood Blood Culture - Preliminary 03/09/21 11:21 Blood Blood Culture - Preliminary 03/07/21 22:43 Nose MRSA (PCR) - Final March 09 blood cultures negative. March 12 H&H 7.3 platelet count 34 current white count 0.4 with 30 segs 22 bands. Creatinine on March 11 0.7. T-max 99.3 on March 12 and March 11. Current temp 99.0. MRSA screen - March 07. Chest x-ray March 08 showed an asymmetric left lower lobe opacity. No respiratory symptoms. A/P Assessment and plan (1) Neutropenia with fever: Status: Acute Comment: Kevin is a 70-year-old man with history of AML/MDS who received chemotherapy on March 07. On same day, he developed fever to 103 and shaking chills. Blood cultures are negative. Although chest x-ray showed a left lower lobe opacity on March 08, he did not have respiratory symptoms. He currently does not require oxygen supplementation. He did have a several days of constipation prior to admission. If no other source identified, it is not uncommon for GI source with bacterial translocation across the bowel wall to be etiology for febrile episode in neutropenic patients. Constipation is no longer a problem. DC vancomycin. Continue Zosyn. Await for white blood cell count recovery. (2) Pancytopenia: Status: Acute Comment: Continue to monitor white blood cell count. He is currently day 7 antibiotic therapy. Maintain Zosyn until ANC greater than 500. (3) MDS (myelodysplastic syndrome): Status: Acute Comment: Evidently, [place] determined that he was not a bone marrow transplant candid ate. (4) AML (acute myeloblastic leukemia): Status: Acute Comment: Chemo continued per oncology Dr. Alfonso. He is receiving cycles every 5 weeks. He believes that he has received either third or fourth cycle at this time Time Spent With Patient Time: Total time spent is greater than 50% in coordination of care (as documented) at patient's floor/unit and/or counseling patient:
[2021-03-13] MEDS: PANTOPRAZOLE 40 MG PACKET PO SCH (07:58)
[2021-03-13] MEDS: INSULIN LISPRO 1 UNIT/0.01 ML UNIT SQ SCH ×4 (07:58→20:17)
[2021-03-13 08:02] LABS: Hematocrit 20.3 % (41.0-55.0); Hemoglobin 6.9 g/dL (13.5-16.5); Mean Cell Volume 93.1 fL (80.0-100.0); Platelet Count 27 K/mcL (140-440); RBC 2.18 M/mcL (4.50-5.90); Red Cell Distribution Width 14.7 % (11.5-14.5); WBC 0.4 K/mcL (4.5-11.0)
[2021-03-13] MEDS: ACYCLOVIR 400 MG TABLET PO SCH ×2 (08:31→20:03)
[2021-03-13] MEDS: LOSARTAN 50 MG TABLET PO SCH (08:31)
[2021-03-13] MEDS: LABETALOL 5 MG/ML ML IV PRN ×2 (08:32→16:14)
[2021-03-13] MEDS: DOCUSATE SODIUM 100 MG CAPSULE PO SCH ×2 (08:33→20:04)
[2021-03-13] MEDS: TBO-FILGRASTIM 300 MCG/0.5 ML SYRINGE SQ SCH (09:53)
[2021-03-13] MEDS ORDERED: VANCOMYCIN 1,500 MG in 0.9 % SODIUM CHLORIDE 500 ML IV SCH (10:00)
[2021-03-13 10:01] LABS: Anisocytosis 1+ (None Seen); Band Neutrophils % 20 % (0-10); Eosinophils % (Manual) 2 % (0-7); Hypochromasia 1+ (None Seen); Lymphocytes % 43 % (15-49); Metamyelocytes % 1 %; Monocytes % (Manual) 6 % (1-12); Myelocytes % 1 %; Platelet Estimate MARKEDLY DECREASED (Normal); RBC Morphology ABNORMAL (Normal); Segmented Neutrophils % 27 % (38-78)
[2021-03-13] MEDS: VANCOMYCIN 1,500 MG in 0.9 % SODIUM CHLORIDE 500 ML IV SCH (10:04)
[2021-03-13] MEDS: LEVOFLOXACIN 750 MG/150 ML BAG IV SCH (11:37)
--- NOTE | 2021-03-13 11:54 | Internal Med Progress Note ---
SUBJECTIVE Subjective Patient information: Note initiated : 03/13/21 at 11:50 am Service Date, if different from initiated Date: [] Patient: Kevin Randolph 70 y/o M admitted on 03/07/21 for weakness, neutropenic fever. Chief Complaint: [neutropenic fever] 03/09/21: Afebrile overnight. Absolute neutrophile count is 102 this morning. c/o chills. c/o left sided tremors. Denies fever or sweating. c/o general body weakness. Denies nausea or vomiting. 03/10/21: Afebrile overnight. Absolute neutrophile count is 216 this morning, up from 102 yesterday. c/o chills. c/o left sided tremors. Denies fever or sweating. Denies general body weakness. Denies nausea or vomiting. 03/11/21: Afebrile overnight. Absolute neutrophile count is 171 this morning, down from 216 yesterday. Platelet count 18, down from 29 yesterday. Denies nosebleed or hematemesis or bloody stool. Denies pain or discomfort. Denies fever, chill, or sweating. 03/12/21: Afebrile overnight. ANC 208 this morning, up from 171 yesterday. Received 2 unit plt transfusion yesterday, plt count 18-->34. Denies nosebleed or hematemesis or bloody stool. Denies pain or discomfort. Denies fever, chill, or sweating. 03/13/21: Afebrile overnight. ANC 208 this morning, same as yesterday. Hemoglobin 6.9 this morning, down from 7.3 yesterday. Denies nosebleed or hematemesis or bloody stool. Denies pain or discomfort. Denies fever, chill, or sweating. Constitutional Vitals: Vital Signs Temp Pulse Resp BP Pulse Ox 37.1 C 88 16 172/92 98 03/13/21 08:00 03/13/21 08:00 03/13/21 08:00 03/13/21 08:00 03/13/21 08:00 Period Temp Pulse Resp BP Sys/Quijano Pulse Ox Last 24 Hr 36.8 C-37.2 C 88-94 16-18 128-172/84-92 97-98 Intake and Output 03/12/21 03/13/21 03/13/21 21:59 05:59 13:59 Intake Total 650 1150 650 Balance 650 1150 650 Weight 82.554 kg Intake & Output: Intake & Output 03/12/21 03/13/21 03/13/21 21:59 05:59 13:59 Intake Total 650 1150 650 Balance 650 1150 650 Weight 82.554 kg Intake: IV 50 550 550 Zosyn 3.375 gm In Dextrose 5% 50 50 50 in Water 50 ml @ 100 mls/hr IV Q6H [facility] Rx#:[id number] Vancomycin 1,500 mg In Sodium 500 500 Chloride 0.9% 500 ml @ 333.3 mls/hr IV Q24H [facility] Rx#: [id number] Oral 600 600 100 Other: Meal Dinner Breakfast Percent of Meal Consumed 100% 50% Feeding Ability Independent Urine Color Bright Yellow # Voids 1 5 General appearance: cooperative and no acute distress Head Head exam: Present atraumatic and normocephalic Eye Eye exam: Present EOMI and PERRL ENT ENT exam: Present mucous membranes moist, normal exam and normal external ear exam Neck Neck exam: Present normal inspection; Absent lymphadenopathy, tenderness and thyromegaly Respiratory Respiratory exam: Absent accessory muscle use, respiratory distress and wheezes Cardiovascular Cardiovascular exam: Present normal rate and rhythm; Absent JVD GI/Abdominal GI/Abdominal exam: Present normal bowel sounds and soft; Absent organomegaly and tenderness Rectal Rectal exam: Present deferred Extremities Exam Extremities exam: Present full ROM, normal capillary refill and normal inspection; Absent tenderness Neurological Exam Neurological exam: Present alert, CN II-XII intact and oriented X3; Absent motor sensory deficit Psychiatric Psychiatric exam: Present normal affect and normal mood; Absent anxious and depressed Skin Skin exam: Present dry and intact OBJ DATA Labs CBC & Chem 7: 03/13/21 06:20 03/11/21 04:56 Labs: Abnormal Lab Results 03/13/21 03/13/21 03/12/21 06:20 06:20 05:31 WBC 0.4 L* 0.4 L* RBC 2.18 L 2.29 L Hgb 6.9 L* 7.3 L Hct 20.3 L* 21.4 L RDW 14.7 H 14.7 H Plt Count 27 L* 34 L* MPV 10.8 H Seg Neutrophils % 27 L 30 L Band Neutrophils % 20 H 22 H WBC Morphology Abnormal A Toxic Granulation 1+ A Dohle Bodies 1+ A Platelet Estimate Markedly decreased A Markedly decreased A RBC Morphology Abnormal A Abnormal A Hypochromasia 1+ A 1+ A Anisocytosis 1+ A RBC Fragments Glucose Uric Acid Magnesium 1.4 L Direct Bilirubin GGT ALT Lactate Dehydrogenase Total Protein Albumin 03/11/21 03/11/21 04:56 04:56 WBC 0.3 L* RBC 2.42 L Hgb 7.7 L Hct 22.2 L RDW 14.6 H Plt Count 18 L* MPV 12.2 H Seg Neutrophils % 31 L Band Neutrophils % 26 H WBC Morphology Abnormal A Toxic Granulation Few A Dohle Bodies 1+ A Platelet Estimate Markedly decreased A RBC Morphology Abnormal A Hypochromasia 1+ A Anisocytosis RBC Fragments Few A Glucose 197 H Uric Acid 2.1 L Magnesium Direct Bilirubin 0.4 H GGT 168 H ALT 61 H Lactate Dehydrogenase 128 L Total Protein 5.2 L Albumin 2.9 L Meds: Medications Acetaminophen (Acetaminophen 325 Mg Tablet) 650 mg PO Q6HP PRN PRN Reason: PAIN/FEVER > 101 Last Admin: 03/13/21 06:00 Dose: 650 mg Documented by: Acyclovir (Acyclovir 400 Mg Tablet) 800 mg PO BID [facility]; Protocol Last Admin: 03/13/21 08:31 Dose: 800 mg Documented by: Albuterol/Ipratropium (Ipratropium/Albuterol 3 Ml Ampul.Neb) 3 ml NEB Q4HP PRN PRN Reason: Shortness Of Breath Alprazolam (Alprazolam 0.25 Mg Tablet) 0.25 mg PO BIDP PRN PRN Reason: Anxiety Last Admin: 03/11/21 20:49 Dose: 0.25 mg Documented by: Dextrose (Dextrose 50% 50 Ml Vial) 0 ml IV UD PRN PRN Reason: Hypoglycemia Diagnostic Test (Pha) (Accu-Chek 1 Each Strip) 1 each FS ACHS [facility] Last Admin: 03/13/21 11:38 Dose: 1 each Documented by: Docusate Sodium (Docusate Sodium 100 Mg Capsule) 100 mg PO BID [facility] Last Admin: 03/13/21 08:33 Dose: Not Given Documented by: Glucose (Dextrose 31 Gm Oral.Susp) 15 gm PO PRN PRN PRN Reason: Hypoglycemia Heparin Sodium (Porcine) (Heparin Flush 10 Units/Ml 5 Ml Syringe) 5 ml IV Q12 [facility] Last Admin: 03/13/21 08:32 Dose: 5 ml Documented by: Levofloxacin (Levaquin) 750 mg in 150 mls @ 100 mls/hr IV Q24H [facility] Last Admin: 03/13/21 11:37 Dose: 100 mls/hr Documented by: Magnesium Sulfate (Magnesium Sulfate) 2 gm in 50 mls @ 50 mls/hr IV UD PRN PRN Reason: Magnesium </= 1.6 Piperacillin Sod/Tazobactam (Sod 3.375 gm/ Dextrose) 50 mls @ 100 mls/hr IV Q6H [facility]; Protocol Last Infusion: 03/13/21 06:20 Dose: Infused Documented by: Potassium Chloride 40 meq/ (Dextrose) 520 mls @ 130 mls/hr IV UD PRN PRN Reason: Potassium < 3 Vancomycin HCl 1,500 mg/ (Sodium Chloride) 500 mls @ 333.3 mls/hr IV Q24H [facility] Last Infusion: 03/13/21 11:40 Dose: Infused Documented by: Insulin Human Lispro (Insulin Lispro 1 Unit/0.01 Ml Unit) 0 unit SQ ACHS [facility]; Protocol Last Admin: 03/13/21 11:37 Dose: 6 units Documented by: Labetalol HCl (Labetalol 5 Mg/Ml Ml) 0 mg IV Q2HP PRN PRN Reason: Hypertension Last Admin: 03/13/21 08:32 Dose: 10 mg Documented by: Losartan Potassium (Losartan 50 Mg Tablet) 50 mg PO DAILY [facility] Last Admin: 03/13/21 08:31 Dose: 50 mg Documented by: Metoclopramide HCl (Metoclopramide 10 Mg/2 Ml Vial) 10 mg IV Q6HP PRN PRN Reason: Nausea And Vomiting Ondansetron HCl (Ondansetron 4 Mg/2 Ml Vial) 4 mg IV Q4HP PRN PRN Reason: Nausea And Vomiting Pantoprazole Sodium (Pantoprazole 40 Mg Packet) 40 mg PO QAMAC [facility] Last Admin: 03/13/21 07:58 Dose: 40 mg Documented by: Cyanocobalamin ( Vitamin B-12) 50 Mcg Tablet 1 dose PO QDAY [facility] Last Admin: 03/13/21 08:33 Dose: Not Given Documented by: Potassium Chloride (Potassium Chloride 20 Meq Tablet) 40 meq PO UD PRN PRN Reason: Potssium is 3-3.5 Potassium Chloride (Potassium Chloride 20 Meq Tablet) 40 meq PO UD PRN PRN Reason: Potassium < 3 Prochlorperazine (Prochlorperazine 10 Mg/2 Ml Vial) 5 mg IV Q4-6HP PRN PRN Reason: Nausea And Vomiting Senna (Sennosides 1 Tablet) 2 tab PO DAILYP PRN PRN Reason: Constipation Sodium Chloride (0.9 % Sodium Chloride 10 Ml Syringe) 10 ml IV Q8 [facility] Last Admin: 03/13/21 05:44 Dose: 10 ml Documented by: Vancomycin HCl (Vancomycin Per Pharmacy) 1 order IV UD [facility]; Protocol A/P Assessment and plan (1) Neutropenia with fever: Status: Acute Comment: Kevin is a 70-year-old man with history of AML/MDS who received chemotherapy on March 07. On same day, he developed fever to 103 and shaking chills. Blood cultures are negative. Although chest x-ray showed a left lower lobe opacity on March 08, he did not have respiratory symptoms. He currently does not require oxygen supplementa tion. He did have a several days of constipation prior to admission. If no other source identified, it is not uncommon for GI source with bacterial translocation across the bowel wall to be etiology for febrile episode in neutropenic patients. Constipation is no longer a problem. DC vancomycin. Continue Zosyn. Await for white blood cell count recovery. (2) MDS (myelodysplastic syndrome): Status: Acute Comment: [facility] [place] determined that he was not a bone marrow transplant candidate. (3) AML (acute myeloblastic leukemia): Status: Acute Comment: Chemo continued per oncology Dr. Alfonso. He is receiving cycles every 5 weeks. He believes that he has received either third or fourth cycle at this time (4) Pancytopenia: Status: Acute Comment: Continue to monitor white blood cell count. He is currently day 7 antibiotic therapy. Maintain Zosyn until ANC greater than 500. (5) Essential (primary) hypertension: Status: Acute (6) T2DM (type 2 diabetes mellitus): Status: Acute (7) Benign essential tremor: Status: Acute (8) Hypomagnesemia: Status: Acute Narrative A/P Narrative: Assessment and Plans: 1. Neutropenic fever: Granix cbc w/ auto diff daily to trend WBC and ANC Repeat Blood culture X2, no growth to date Neutropenic precautions Consult Dr. Krishna, recs. appreciated d/c Vancomycin as per Dr. Krishna c/o Zosyn as per Dr. Erendira Briceño 2. h/o AML/MDS with curtis-cytopenia Dr. Roberts spoke with oncologist, who agreed on current choice of antibiotics Granix Neutropenic precautions cbc w/ auto diff daily to trend WBC and ANC Transfuse 2 unit pRBC for hemoglobin of 6.9 3. Benign essential Tremors: DDx: secondary to infection Continue to treat for (any) underlying infection, see #1 4. T2DM: Hold oral hypoglycemics Continue correctional scale insulin AC HS Accu Chek AC Hypoglycemia protocol Diabetic diet 5. Essential HTN: Currently normotensive 6. Hypomagnesemia: RESOLVED Serum Mg level 1.4 on 03/13/21, replace with Mg IV Repeat serum Mg level in the morning and repeat Mg replacement as needed GI ppx: oral PPI DVT ppx: SCDs Code status: Full Prognosis: guarded Disposition: transfer to inpatient med surg Time Spent With Patient Time: Total time spent is greater than 50% in coordination of care (as documented) at patient's floor/unit and/or counseling patient: QUALITY Stroke Symptom Onset Unknown: No VTE Deep Vein Thrombosis/Pulmonary Embolism Present on Admission: No
[2021-03-13] MEDS ORDERED: 0.9 % SODIUM CHLORIDE 250 ML IV SCH (12:00)
[2021-03-13] MEDS: FUROSEMIDE 40 MG TABLET PO SCH ×2 (14:42→14:47)
[2021-03-14] MEDS: PIPERACILLIN SODIUM/TAZOBACTAM 3.375 GM in DEXTROSE 5% IN WATER 50 ML IV SCH ×5 (00:05→23:58)
[2021-03-14] MEDS: 0.9 % SODIUM CHLORIDE 10 ML SYRINGE IV SCH ×3 (05:43→21:20)
[2021-03-14 07:29] LABS: Hemoglobin 9.1 g/dL (13.5-16.5); Mean Cell Volume 90.9 fL (80.0-100.0); Mean Platelet Volume 10.5 fL (7.4-10.4); Platelet Count 17 K/mcL (140-440); RBC 2.86 M/mcL (4.50-5.90); Red Cell Distribution Width 14.4 % (11.5-14.5); WBC 0.5 K/mcL (4.5-11.0)
[2021-03-14] MEDS: DOCUSATE SODIUM 100 MG CAPSULE PO SCH ×3 (07:36→21:20)
[2021-03-14] MEDS: FUROSEMIDE 40 MG TABLET PO SCH ×2 (07:44→17:14)
[2021-03-14] MEDS: PANTOPRAZOLE 40 MG PACKET PO SCH (07:44)
[2021-03-14] MEDS: LOSARTAN 50 MG TABLET PO SCH (07:44)
[2021-03-14] MEDS: INSULIN LISPRO 1 UNIT/0.01 ML UNIT SQ SCH ×4 (07:59→21:21)
[2021-03-14] MEDS: ACYCLOVIR 400 MG TABLET PO SCH ×2 (08:06→21:19)
[2021-03-14] MEDS ORDERED: 0.9 % SODIUM CHLORIDE 250 ML IV SCH (08:15)
[2021-03-14 08:39] LABS: Band Neutrophils % 15 % (0-10); Eosinophils % (Manual) 2 % (0-7); Lymphocytes % 36 % (15-49); Monocytes % (Manual) 1 % (1-12); Platelet Estimate MARKEDLY DECREASED (Normal); RBC Morphology NORMAL (Normal); Reactive Lymphocytes 1 % (0-2); Segmented Neutrophils % 45 % (38-78)
--- NOTE | 2021-03-14 08:40 | Internal Med Progress Note ---
SUBJECTIVE Subjective Patient information: Note initiated : 03/14/21 at 8:38 am Service Date, if different from initiated Date: [] Patient: Kevin Randolph 70 y/o M admitted on 03/07/21 for weakness, neutropenic fever. Chief Complaint: [neutropenic fever] 03/09/21: Afebrile overnight. Absolute neutrophile count is 102 this morning. c/o chills. c/o left sided tremors. Denies fever or sweating. c/o general body weakness. Denies nausea or vomiting. 03/10/21: Afebrile overnight. Absolute neutrophile count is 216 this morning, up from 102 yesterday. c/o chills. c/o left sided tremors. Denies fever or sweating. Denies general body weakness. Denies nausea or vomiting. 03/11/21: Afebrile overnight. Absolute neutrophile count is 171 this morning, down from 216 yesterday. Platelet count 18, down from 29 yesterday. Denies nosebleed or hematemesis or bloody stool. Denies pain or discomfort. Denies fever, chill, or sweating. 03/12/21: Afebrile overnight. ANC 208 this morning, up from 171 yesterday. Received 2 unit plt transfusion yesterday, plt count 18-->34. Denies nosebleed or hematemesis or bloody stool. Denies pain or discomfort. Denies fever, chill, or sweating. 03/13/21: Afebrile overnight. ANC 208 this morning, same as yesterday. Hemoglobin 6.9 this morning, down from 7.3 yesterday. Denies nosebleed or hematemesis or bloody stool. Denies pain or discomfort. Denies fever, chill, or sweating. 03/14/21: Afebrile overnight. ANC pending. Platelet 17 this morning. No hemoptysis or hematemesis or bloody stool or hematochezia. Denies pain or discomfort. Denies fever, chill, or sweating. Constitutional Vitals: Vital Signs Temp Pulse Resp BP Pulse Ox 36.9 C 90 18 157/94 99 03/14/21 07:39 03/14/21 07:39 03/14/21 07:39 03/14/21 07:39 03/14/21 07:39 Period Temp Pulse Resp BP Sys/Quijano Pulse Ox Last 24 Hr 36.3 C-37.9 C 84-92 12-20 129-173/77-98 97-100 Intake and Output 03/13/21 03/14/21 03/14/21 21:59 05:59 13:59 Intake Total 1425 461 50 Balance 1425 461 50 Weight 79.968 kg Intake & Output: Intake & Output 03/13/21 03/14/21 03/14/21 21:59 05:59 13:59 Intake Total 1425 461 50 Balance 1425 461 50 Weight 79.968 kg Intake: Nourishment/Supplement quantity 200 (ml) IV 50 161 50 Sodium Chloride 0.9% 250 ml @ 111 20 mls/hr IV .[id number] [facility] Rx#: [id number] Zosyn 3.375 gm In Dextrose 5% 50 50 50 in Water 50 ml @ 100 mls/hr IV Q6H [facility] Rx#:[id number] Oral 200 300 Blood Product 975 Other: Nourishment/Supplement name Ensure Urine Appearance Clear Urine Color Bright Yellow Stool Size Moderate Stool Color Brown Stool Consistency Soft Formed # Voids 1 2 # Bowel Movements 2 General appearance: cooperative and no acute distress Head Head exam: Present atraumatic and normocephalic Eye Eye exam: Present EOMI and PERRL ENT ENT exam: Present mucous membranes moist, normal exam and normal external ear exam Neck Neck exam: Present normal inspection; Absent lymphadenopathy, tenderness and thyromegaly Respiratory Respiratory exam: Absent accessory muscle use, respiratory distress and wheezes Cardiovascular Cardiovascular exam: Present normal rate and rhythm; Absent JVD GI/Abdominal GI/Abdominal exam: Present normal bowel sounds and soft; Absent organomegaly and tenderness Rectal Rectal exam: Present deferred Extremities Exam Extremities exam: Present full ROM, normal capillary refill and normal inspection; Absent tenderness Neurological Exam Neurological exam: Present alert, CN II-XII intact and oriented X3; Absent motor sensory deficit Psychiatric Psychiatric exam: Present normal affect and normal mood; Absent anxious and depressed Skin Skin exam: Present dry and intact OBJ DATA Labs CBC & Chem 7: 03/14/21 05:55 03/11/21 04:56 Labs: Abnormal Lab Results 03/14/21 03/13/21 03/13/21 05:55 06:20 06:20 WBC 0.5 L* 0.4 L* RBC 2.86 L 2.18 L Hgb 9.1 L 6.9 L* Hct 26.0 L 20.3 L* RDW 14.7 H Plt Count 17 L* 27 L* MPV 10.5 H Seg Neutrophils % 27 L Band Neutrophils % 20 H WBC Morphology Toxic Granulation Dohle Bodies Platelet Estimate Markedly decreased A RBC Morphology Abnormal A Hypochromasia 1+ A Anisocytosis 1+ A RBC Fragments Magnesium 1.4 L 03/12/21 03/11/21 05:31 04:56 WBC 0.4 L* RBC 2.29 L Hgb 7.3 L Hct 21.4 L RDW 14.7 H Plt Count 34 L* MPV 10.8 H Seg Neutrophils % 30 L 31 L Band Neutrophils % 22 H 26 H WBC Morphology Abnormal A Abnormal A Toxic Granulation 1+ A Few A Dohle Bodies 1+ A 1+ A Platelet Estimate Markedly decreased A Markedly decreased A RBC Morphology Abnormal A Abnormal A Hypochromasia 1+ A 1+ A Anisocytosis RBC Fragments Few A Magnesium Meds: Medications Acetaminophen (Acetaminophen 325 Mg Tablet) 650 mg PO Q6HP PRN PRN Reason: PAIN/FEVER > 101 Last Admin: 03/13/21 20:03 Dose: 650 mg Documented by: Acyclovir (Acyclovir 400 Mg Tablet) 800 mg PO BID [facility]; Protocol Last Admin: 03/14/21 08:06 Dose: 800 mg Documented by: Albuterol/Ipratropium (Ipratropium/Albuterol 3 Ml Ampul.Neb) 3 ml NEB Q4HP PRN PRN Reason: Shortness Of Breath Alprazolam (Alprazolam 0.25 Mg Tablet) 0.25 mg PO BIDP PRN PRN Reason: Anxiety Last Admin: 03/11/21 20:49 Dose: 0.25 mg Documented by: Dextrose (Dextrose 50% 50 Ml Vial) 0 ml IV UD PRN PRN Reason: Hypoglycemia Diagnostic Test (Pha) (Accu-Chek 1 Each Strip) 1 each FS ACHS [facility] Last Admin: 03/14/21 07:41 Dose: 1 each Documented by: Docusate Sodium (Docusate Sodium 100 Mg Capsule) 100 mg PO BID [facility] Last Admin: 03/13/21 20:04 Dose: Not Given Documented by: Furosemide (Furosemide 40 Mg Tablet) 40 mg PO BIDD [facility] Last Admin: 03/14/21 07:44 Dose: 40 mg Documented by: Glucose (Dextrose 31 Gm Oral.Susp) 15 gm PO PRN PRN PRN Reason: Hypoglycemia Heparin Sodium (Porcine) (Heparin Flush 10 Units/Ml 5 Ml Syringe) 5 ml IV Q12 [facility] Last Admin: 03/14/21 07:44 Dose: 5 ml Documented by: Levofloxacin (Levaquin) 750 mg in 150 mls @ 100 mls/hr IV Q24H [facility] Last Infusion: 03/13/21 13:21 Dose: Infused Documented by: Magnesium Sulfate (Magnesium Sulfate) 2 gm in 50 mls @ 50 mls/hr IV UD PRN PRN Reason: Magnesium </= 1.6 Last Admin: 03/14/21 07:37 Dose: 50 mls/hr Documented by: Piperacillin Sod/Tazobactam (Sod 3.375 gm/ Dextrose) 50 mls @ 100 mls/hr IV Q6H [facility]; Protocol Last Infusion: 03/14/21 06:15 Dose: Infused Documented by: Potassium Chloride 40 meq/ (Dextrose) 520 mls @ 130 mls/hr IV UD PRN PRN Reason: Potassium < 3 Sodium Chloride (Sodium Chloride 0.9%) 250 mls @ 20 mls/hr IV .[id number] [facility] Stop: 03/14/21 20:44 Insulin Human Lispro (Insulin Lispro 1 Unit/0.01 Ml Unit) 0 unit SQ ACHS [facility]; Protocol Last Admin: 03/14/21 07:59 Dose: 6 units Documented by: Labetalol HCl (Labetalol 5 Mg/Ml Ml) 0 mg IV Q2HP PRN PRN Reason: Hypertension Last Admin: 03/13/21 16:14 Dose: 10 mg Documented by: Losartan Potassium (Losartan 50 Mg Tablet) 50 mg PO DAILY [facility] Last Admin: 03/14/21 07:44 Dose: 50 mg Documented by: Metoclopramide HCl (Metoclopramide 10 Mg/2 Ml Vial) 10 mg IV Q6HP PRN PRN Reason: Nausea And Vomiting Ondansetron HCl (Ondansetron 4 Mg/2 Ml Vial) 4 mg IV Q4HP PRN PRN Reason: Nausea And Vomiting Pantoprazole Sodium (Pantoprazole 40 Mg Packet) 40 mg PO QAMAC [facility] Last Admin: 03/14/21 07:44 Dose: 40 mg Documented by: Cyanocobalamin ( Vitamin B-12) 50 Mcg Tablet 1 dose PO QDAY [facility] Last Admin: 03/14/21 07:37 Dose: Not Given Documented by: Potassium Chloride (Potassium Chloride 20 Meq Tablet) 40 meq PO UD PRN PRN Reason: Potssium is 3-3.5 Potassium Chloride (Potassium Chloride 20 Meq Tablet) 40 meq PO UD PRN PRN Reason: Potassium < 3 Prochlorperazine (Prochlorperazine 10 Mg/2 Ml Vial) 5 mg IV Q4-6HP PRN PRN Reason: Nausea And Vomiting Senna (Sennosides 1 Tablet) 2 tab PO DAILYP PRN PRN Reason: Constipation Sodium Chloride (0.9 % Sodium Chloride 10 Ml Syringe) 10 ml IV Q8 [facility] Last Admin: 03/14/21 05:43 Dose: 10 ml Documented by: A/P Assessment and plan (1) Neutropenia with fever: Status: Acute Comment: Kevin is a 70-year-old man with history of AML/MDS who received chemotherapy on March 07. On same day, he developed fever to 103 and shaking chills. Blood c ultures are negative. Although chest x-ray showed a left lower lobe opacity on March 08, he did not have respiratory symptoms. He currently does not require oxygen supplementation. He did have a several days of constipation prior to admission. If no other source identified, it is not uncommon for GI source with bacterial translocation across the bowel wall to be etiology for febrile episode in neutropenic patients. Constipation is no longer a problem. DC vancomycin. Continue Zosyn. Await for white blood cell count recovery. (2) MDS (myelodysplastic syndrome): Status: Acute Comment: Evidently, [place] determined that he was not a bone marrow transplant candidate. (3) AML (acute myeloblastic leukemia): Status: Acute Comment: Chemo continued per oncology Dr. Alfonso. He is receiving cycles every 5 weeks. He believes that he has received either third or fourth cycle at this time (4) Pancytopenia: Status: Acute Comment: Continue to monitor white blood cell count. He is currently day 7 antibiotic therapy. Maintain Zosyn until ANC greater than 500. (5) Essential (primary) hypertension: Status: Acute (6) T2DM (type 2 diabetes mellitus): Status: Acute (7) Benign essential tremor: Status: Acute (8) Hypomagnesemia: Status: Acute Narrative A/P Narrative: Assessment and Plans: 1. Neutropenic fever: Granix cbc w/ auto diff daily to trend WBC and ANC Repeat Blood culture X2, no growth to date Neutropenic precautions Consult Dr. Krishna, recs. appreciated d/c Vancomycin as per Dr. Krishna c/o Zosyn as per Dr. Krishna c/o Levaquin as per Dr. Krishna 2. h/o AML/MDS with curtis-cytopenia Dr. Roberts spoke with oncologist, who agreed on current choice of antibiotics Granix Neutropenic precautions cbc w/ auto diff daily to trend WBC and ANC Transfuse 2 unit platelet for plt count of 17 today 3. Benign essential Tremors: DDx: secondary to infection Continue to treat for (any) underlying infection, see #1 4. T2DM: Hold oral hypoglycemics Continue correctional scale insulin AC HS Accu Chek AC Hypoglycemia protocol Diabetic diet 5. Essential HTN: Currently normotensive 6. Hypomagnesemia: RESOLVED Serum Mg level 1.6 on 03/14/21 Repeat serum Mg level in the morning and repeat Mg replacement as needed GI ppx: oral PPI DVT ppx: SCDs Code status: Full Prognosis: guarded Disposition: transfer to inpatient med surg Time Spent With Patient Time: Total time spent is greater than 50% in coordination of care (as documented) at patient's floor/unit and/or counseling patient: Total time spent with greater than 50% in coordination of care (as documented) at patient's floor/unit and/or counseling patient:: 15 - 24 minutes QUALITY Stroke Symptom Onset Unknown: No VTE Deep Vein Thrombosis/Pulmonary Embolism Present on Admission: No
[2021-03-14] MEDS: TBO-FILGRASTIM 300 MCG/0.5 ML SYRINGE SQ SCH (10:38)
[2021-03-14] MEDS: LEVOFLOXACIN 750 MG/150 ML BAG IV SCH (11:39)
[2021-03-14] MEDS ORDERED: diphenhydrAMINE 25 MG CAPSULE PO ONE (14:56)
[2021-03-14] MEDS: ACETAMINOPHEN 325 MG TABLET PO PRN (15:00)
[2021-03-15] MEDS: PIPERACILLIN SODIUM/TAZOBACTAM 3.375 GM in DEXTROSE 5% IN WATER 50 ML IV SCH ×3 (05:36→17:24)
[2021-03-15] MEDS: 0.9 % SODIUM CHLORIDE 10 ML SYRINGE IV SCH ×3 (05:37→20:35)
--- NOTE | 2021-03-15 06:44 | Infectious Disease Consult ---
HPI Data of Consult Consult date: 03/15/21 Primary Care Provider: Jayden Ordonez Consult Narrative Patient Information: Note initiated : 03/15/21 at 6:39 am Service Date, if different from initiated Date: [03/15/21] Patient: Kevin Randolph 70 y/o M admitted on 03/07/21 for weakness, neutropenic fever. Chief Complaint: [feeling better] Kevin is a 70-year-old man with MDS/AML admitted for neutropenic fever and pancytopenia. He is feeling better. No complaints of breathing problems chest pain cough abdominal pain constipation or diarrhea. T-max yesterday 99.5, 100.3 on March 07 699.3 on March 12. CBC pending today. White count yesterday 0.5 45 segs 15 bands. Blood cultures remain negative from March 09. He is currently day 9 Zosyn. cc:: CC: Segundo Roberts PFSH PFSH All Active Problems (Updated 03/15/21 @ 06:44 by Jayden Krishna MD) Hypomagnesemia (Acute) Benign essential tremor (Acute) T2DM (type 2 diabetes mellitus) (Acute) Essential (primary) hypertension (Acute) Neutropenia with fever (Acute) MDS (myelodysplastic syndrome) (Acute) AML (acute myeloblastic leukemia) (Acute) Pancytopenia (Acute) Social History (Updated 03/13/21 @ 07:02 by Jayden Krishna MD) pets and animals: No MEDS/ALLERGIES Home Medications and Allergies Home Medications Medication Instructions Recorded Confirmed Type acyclovir 800 mg PO BID 03/08/21 03/08/21 History albuterol [Proventil] 90 mcg INHALATION PRN PRN 03/08/21 03/08/21 History alprazolam 0.25 mg PO BID 03/08/21 03/08/21 History bisoprolol fumarate 5 mg PO QDAY 03/08/21 03/08/21 History cyanocobalamin (vitamin B-12) 50 mcg PO QDAY 03/08/21 03/08/21 History insulin degludec [Tresiba U-100 10 unit SUBCUT DAILY 03/08/21 03/08/21 History Insulin] losartan 50 mg PO DAILY 03/08/21 03/08/21 History magnesium oxide 400 mg PO BID 03/08/21 03/08/21 History metformin 500 mg PO BID 03/08/21 03/08/21 History multivitamin [Daily Multivitamin] 1 tab PO QDAY 03/08/21 03/08/21 History pantoprazole 40 mg PO DAILY 03/08/21 03/08/21 History prochlorperazine maleate 10 mg PO BID 03/08/21 03/08/21 History semaglutide [Ozempic] See Rx Instructions .ROUTE .COMPLEX 03/08/21 03/08/21 History Allergies Allergy/AdvReac Type Severity Reaction Status Date / Time No Known Drug Intolerances Allergy Unknown Verified 06/09/19 08:53 Physical Examination Vital Signs Vital signs: Temp Pulse Resp BP Pulse Ox 98.8 F 93 H 16 138/76 98 03/15/21 05:35 03/15/21 05:35 03/15/21 05:35 03/15/21 05:35 03/15/21 05:35 fever record documented. Additional Exam Additional exam: General: Laying comfortably in bed. No acute distress. No active coughing. HEENT: No oral lesions or thrush. Anicteric sclera. Neck is supple. Lungs are clear bilaterally without rales wheezing or rhonchi. Heart: Regular rate and rhythm without murmur. Abdomen: Soft nontender positive bowel sounds. Extremities without edema or rash. Results Laboratory Findings CBC and BMP: 03/14/21 05:55 03/11/21 04:56 Abnormal lab findings: Abnormal Labs 03/07/21 03/08/21 03/08/21 22:41 08:20 08:20 WBC 0.3 L* RBC 2.21 L Hgb 7.1 L Hct 21.2 L RDW 14.9 H Plt Count 6 L* MPV Seg Neutrophils % 37 L Band Neutrophils % 17 H Nucleated RBCs 3 H WBC Morphology Reactive Lymphocytes 4 H Toxic Granulation Dohle Bodies Platelet Estimate Decreased A RBC Morphology Abnormal A Hypochromasia 2+ A Anisocytosis 1+ A RBC Fragments Potassium 5.2 H Carbon Dioxide 19 L Glucose 372 H Hemoglobin A1c Uric Acid Calcium 8.3 L Phosphorus Magnesium Direct Bilirubin 0.3 H GGT 172 H AST ALT 42 H Lactate Dehydrogenase 131 L C-Reactive Protein 6.40 H Total Protein 5.1 L Albumin 3.1 L Globulin 2.0 L Procalcitonin 03/08/21 03/08/21 03/08/21 08:20 08:20 08:20 WBC RBC Hgb Hct RDW Plt Count MPV Seg Neutrophils % Band Neutrophils % Nucleated RBCs WBC Morphology Reactive Lymphocytes Toxic Granulation Dohle Bodies Platelet Estimate RBC Morphology Hypochromasia Anisocytosis RBC Fragments Potassium Carbon Dioxide 20 L Glucose 200 H Hemoglobin A1c 7.4 H Uric Acid Calcium Phosphorus Magnesium Direct Bilirubin 0.3 H GGT 163 H AST ALT 42 H Lactate Dehydrogenase C-Reactive Protein Total Protein 5.1 L Albumin 2.9 L Globulin Procalcitonin 0.60 H 03/09/21 03/09/21 03/10/21 05:02 05:02 04:57 WBC 0.2 L* 0.4 L* RBC 2.31 L 2.64 L Hgb 7.3 L 8.4 L Hct 21.3 L 24.2 L RDW 14.6 H Plt Count 28 L* 29 L* MPV 11.3 H Seg Neutrophils % 32 L 30 L Band Neutrophils % 19 H 24 H Nucleated RBCs WBC Morphology Abnormal A Reactive Lymphocytes Toxic Granulation 1+ A Dohle Bodies Platelet Estimate Markedly decreased A Markedly decreased A RBC Morphology Abnormal A Hypochromasia 1+ A Anisocytosis RBC Fragments Potassium Carbon Dioxide Glucose 201 H Hemoglobin A1c Uric Acid 2.2 L Calcium 8.3 L Phosphorus 2.4 L Magnesium Direct Bilirubin 0.3 H GGT 138 H AST ALT 44 H Lactate Dehydrogenase C-Reactive Protein Total Protein 4.9 L Albumin 2.8 L Globulin 2.1 L Procalcitonin 03/10/21 03/11/21 03/11/21 04:57 04:56 04:56 WBC 0.3 L* RBC 2.42 L Hgb 7.7 L Hct 22.2 L RDW 14.6 H Plt Count 18 L* MPV 12.2 H Seg Neutrophils % 31 L Band Neutrophils % 26 H Nucleated RBCs WBC Morphology Abnormal A Reactive Lymphocytes Toxic Granulation Few A Dohle Bodies 1+ A Platelet Estimate Markedly decreased A RBC Morphology Abnormal A Hypochromasia 1+ A Anisocytosis RBC Fragments Few A Potassium Carbon Dioxide Glucose 191 H 197 H Hemoglobin A1c Uric Acid 2.3 L 2.1 L Calcium Phosphorus Magnesium 1.5 L Direct Bilirubin 0.4 H 0.4 H GGT 178 H 168 H AST 48 H ALT 71 H 61 H Lactate Dehydrogenase 128 L C-Reactive Protein Total Protein 5.5 L 5.2 L Albumin 2.9 L 2.9 L Globulin Procalcitonin 03/12/21 03/13/21 03/13/21 05:31 06:20 06:20 WBC 0.4 L* 0.4 L* RBC 2.29 L 2.18 L Hgb 7.3 L 6.9 L* Hct 21.4 L 20.3 L* RDW 14.7 H 14.7 H Plt Count 34 L* 27 L* MPV 10.8 H Seg Neutrophils % 30 L 27 L Band Neutrophils % 22 H 20 H Nucleated RBCs WBC Morphology Abnormal A Reactive Lymphocytes Toxic Granulation 1+ A Dohle Bodies 1+ A Platelet Estimate Markedly decreased A Markedly decreased A RBC Morphology Abnormal A Abnormal A Hypochromasia 1+ A 1+ A Anisocytosis 1+ A RBC Fragments Potassium Carbon Dioxide Glucose Hemoglobin A1c Uric Acid Calcium Phosphorus Magnesium 1.4 L Direct Bilirubin GGT AST ALT Lactate Dehydrogenase C-Reactive Protein Total Protein Albumin Globulin Procalcitonin 03/14/21 05:55 WBC 0.5 L* RBC 2.86 L Hgb 9.1 L Hct 26.0 L RDW Plt Count 17 L* MPV 10.5 H Seg Neutrophils % Band Neutrophils % 15 H Nucleated RBCs WBC Morphology Reactive Lymphocytes Toxic Granulation Dohle Bodies Platelet Estimate Markedly decreased A RBC Morphology Hypochromasia Anisocytosis RBC Fragments Potassium Carbon Dioxide Glucose Hemoglobin A1c Uric Acid Calcium Phosphorus Magnesium Direct Bilirubin GGT AST ALT Lactate Dehydrogenase C-Reactive Protein Total Protein Albumin Globulin Procalcitonin White count 0.5 hemoglobin 9.1 platelet count 17 differential 45 segs 15 bands. Blood cultures March 09 no growth. Vanco trough 19.2 on March 13. Microbiology: Microbiology 03/09/21 11:25 Blood Blood Culture - Final 03/09/21 11:21 Blood Blood Culture - Final 03/07/21 22:43 Nose MRSA (PCR) - Final A/P Assessment and plan (1) Neutropenia with fever: Status: Acute Comment: Kevin is a 70-year-old man with history of AML/MDS who received chemotherapy on March 07. On same day, he developed fever to 103 and shaking chills. Blood cultures are negative. Although chest x-ray showed a left lower lobe opacity on March 08, he did not have respiratory symptoms. He currently does not require oxygen supplementation. He did have a several days of constipation prior to admission. If no other source identified, it is not uncommon for GI source with bacterial translocation across the bowel wall to be etiology for febrile episode in neutropenic patients. Constipation is no longer a problem. DC Levaquin. Continue Zosyn. Await for white blood cell count recovery, ANC greater than 500. He is still having mild temperature elevations greater than 99. Repeat blood cultures for temp greater than 100.5. (2) MDS (myelodysplastic syndrome): Status: Acute Comment: [facility] [place] determined that he was not a bone marrow transplant candidate. (3) AML (acute myeloblastic leukemia): Status: Acute Comment: Chemo continued per oncology Dr. Alfonso. He is receiving cycles every 5 weeks. He believes that he has received either third or fourth cycle at this time (4) Pancytopenia: Status: Acute Comment: Continue to monitor white blood cell count. He is currently day 9 antibiotic therapy. Maintain Zosyn until ANC greater than 500. DC Levaquin. Time Spent With Patient Time: Total time spent is greater than 50% in coordination of care (as documented) at patient's floor/unit and/or counseling patient:
[2021-03-15 07:16] LABS: Hematocrit 27.2 % (41.0-55.0); Hemoglobin 9.2 g/dL (13.5-16.5); Mean Cell Volume 90.4 fL (80.0-100.0); Mean Corpuscular HGB Conc 33.8 g/dL (31.0-36.0); Mean Platelet Volume 11.5 fL (7.4-10.4); Platelet Count 35 K/mcL (140-440); RBC 3.01 M/mcL (4.50-5.90); Red Cell Distribution Width 14.5 % (11.5-14.5); WBC 0.5 K/mcL (4.5-11.0)
[2021-03-15] MEDS: FUROSEMIDE 40 MG TABLET PO SCH ×2 (07:27→17:25)
[2021-03-15] MEDS: PANTOPRAZOLE 40 MG PACKET PO SCH (07:27)
[2021-03-15] MEDS: INSULIN LISPRO 1 UNIT/0.01 ML UNIT SQ SCH ×4 (08:10→20:42)
[2021-03-15] MEDS: ACYCLOVIR 400 MG TABLET PO SCH ×2 (08:10→20:42)
[2021-03-15] MEDS: LOSARTAN 50 MG TABLET PO SCH (08:10)
[2021-03-15] MEDS: DOCUSATE SODIUM 100 MG CAPSULE PO SCH ×2 (08:10→20:42)
[2021-03-15] MEDS: ALPRAZolam 0.25 MG TABLET PO PRN (08:48)
[2021-03-15 09:26] LABS: Band Neutrophils % 5 % (0-10); Hypochromasia FEW (None Seen); Lymphocytes % 56 % (15-49); Monocytes % (Manual) 5 % (1-12); Platelet Estimate MARKEDLY DECREASED (Normal); RBC Morphology ABNORMAL (Normal); Segmented Neutrophils % 34 % (38-78)
[2021-03-15] MEDS: TBO-FILGRASTIM 300 MCG/0.5 ML SYRINGE SQ SCH (09:32)
--- NOTE | 2021-03-15 12:24 | Internal Med Progress Note ---
SUBJECTIVE Subjective Patient information: Note initiated : 03/15/21 at 12:18 pm Service Date, if different from initiated Date: [] Patient: Kevin Randolph 70 y/o M admitted on 03/07/21 for weakness, neutropenic fever. Chief Complaint: [] Interval history: Patient presents to [facility] with shaking tremors. 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 He felt fine in the morning prior to his chemotherapy. He has a history of tremors the left side and has them daily. Symptoms are worse than other times. Remaining go to the ED today is because his left side tremors are came so severe and then they started moving over the right side which she has not had before. He does not feel ill just tired. Denies chest pain shortness of breath abdominal pain. When he was evaluated in the ED his laboratory was concerning for septic picture because he had a severe lactic acidosis and he was febrile in the ED -and with his chronic pancytopenia a source of infection was sought after but unable to be identified. Laboratory was significant for neutropenia which is had at least since February 16. Is a history of pancytopenia and has been receiving platelet transfusions as well as red blood cell transfusions when hematocrit falls to less than 28. In the ED he was evaluated his blood pressure remained stable in the low 100s. He was febrile of 103 when he came in. His procalcitonin was elevated mildly 0.57. He had a CT abdomen pelvis looking for source of infection as initial chest x- ray and urinalysis were unremarkable. The CT only showed a questionable developing pneumonia. [facility] unable to find a bed for the patient and thus we were contacted. Blood cultures were obtained patient received sepsis protocol IV fluids and given vancomycin and cefepime. ED physician in the process of trying to get a hold of the patient's oncologist but has been unsuccessful. 03/09/21: Afebrile overnight. Absolute neutrophile count is 102 this morning. c/o chills. c/o left sided tremors. Denies fever or sweating. c/o general body weakness. Denies nausea or vomiting. 03/10/21: Afebrile overnight. Absolute neutrophile count is 216 this morning, up from 102 yesterday. c/o chills. c/o left sided tremors. Denies fever or sweating. Denies general body weakness. Denies nausea or vomiting. 03/11/21: Afebrile overnight. Absolute neutrophile count is 171 this morning, down from 216 yesterday. Platelet count 18, down from 29 yesterday. Denies n osebleed or hematemesis or bloody stool. Denies pain or discomfort. Denies fever, chill, or sweating. 03/12/21: Afebrile overnight. ANC 208 this morning, up from 171 yesterday. Received 2 unit plt transfusion yesterday, plt count 18-->34. Denies nosebleed or hematemesis or bloody stool. Denies pain or discomfort. Denies fever, chill, or sweating. 03/13/21: Afebrile overnight. ANC 208 this morning, same as yesterday. Hemoglobin 6.9 this morning, down from 7.3 yesterday. Denies nosebleed or hematemesis or bloody stool. Denies pain or discomfort. Denies fever, chill, or sweating. 03/14/21: Afebrile overnight. ANC pending. Platelet 17 this morning. No hemoptysis or hematemesis or bloody stool or hematochezia. Denies pain or discomfort. Denies fever, chill, or sweating. 03/15.-Patient doing better. T-max 99.8. Continue levofloxacin/Zosyn as per ID recommendations. On Granix day 7. ANC 300. Await callback from patient's oncologist for further recommendations. Patient is now day 8 hospitalization ongoing management for neutropenic fever. Per ID recommendations Levaquin discontinued. Continuing Zosyn. As needed blood cultures for T-max greater than 100.5. Constitutional Vitals: Vital Signs Temp Pulse Resp BP Pulse Ox 99.4 F H 97 H 20 128/80 95 03/15/21 08:00 03/15/21 08:00 03/15/21 08:00 03/15/21 08:00 03/15/21 08:00 Period Temp Pulse Resp BP Sys/Quijano Pulse Ox Last 24 Hr 98.0 F-99.5 F 81-97 14-20 118-154/68-95 94-99 Intake and Output 03/14/21 03/15/21 03/15/21 21:59 05:59 13:59 Intake Total 682 150 290 Balance 682 150 290 Weight 80.513 kg Alert oriented No labored breathing No anxiety Nontender nondistended abdomen Intake & Output: Intake & Output 03/14/21 03/15/21 03/15/21 21:59 05:59 13:59 Intake Total 682 150 290 Balance 682 150 290 Weight 80.513 kg Intake: IV 90 50 50 Sodium Chloride 0.9% 250 ml @ 40 20 mls/hr IV .[id number] [facility] Rx#: [id number] Zosyn 3.375 gm In Dextrose 5% 50 50 50 in Water 50 ml @ 100 mls/hr IV Q6H [facility] Rx#:[id number] Oral 300 100 240 Blood Product 292 Other: Meal Dinner Breakfast Percent of Meal Consumed 50% 100% Feeding Ability Independent Assist with Tray Set Up Stool Size Moderate Stool Consistency Soft # Voids 1 1 3 # Bowel Movements 1 OBJ DATA Labs CBC & Chem 7: 03/15/21 05:50 03/11/21 04:56 Labs: Abnormal Lab Results 03/15/21 03/14/21 03/13/21 05:50 05:55 06:20 WBC 0.5 L* 0.5 L* RBC 3.01 L 2.86 L Hgb 9.2 L 9.1 L Hct 27.2 L 26.0 L RDW Plt Count 35 L* 17 L* MPV 11.5 H 10.5 H Seg Neutrophils % 34 L Band Neutrophils % 15 H Lymphocytes % 56 H Platelet Estimate Markedly decreased A Markedly decreased A RBC Morphology Abnormal A Hypochromasia Few A Anisocytosis Magnesium 1.4 L 03/13/21 06:20 WBC 0.4 L* RBC 2.18 L Hgb 6.9 L* Hct 20.3 L* RDW 14.7 H Plt Count 27 L* MPV Seg Neutrophils % 27 L Band Neutrophils % 20 H Lymphocytes % Platelet Estimate Markedly decreased A RBC Morphology Abnormal A Hypochromasia 1+ A Anisocytosis 1+ A Magnesium Meds: Medications Acetaminophen (Acetaminophen 325 Mg Tablet) 650 mg PO Q6HP PRN PRN Reason: PAIN/FEVER > 101 Last Admin: 03/14/21 15:00 Dose: 650 mg Documented by: Acyclovir (Acyclovir 400 Mg Tablet) 800 mg PO BID [facility]; Protocol Last Admin: 03/15/21 08:10 Dose: 800 mg Documented by: Albuterol/Ipratropium (Ipratropium/Albuterol 3 Ml Ampul.Neb) 3 ml NEB Q4HP PRN PRN Reason: Shortness Of Breath Alprazolam (Alprazolam 0.25 Mg Tablet) 0.25 mg PO BIDP PRN PRN Reason: Anxiety Last Admin: 03/15/21 08:48 Dose: 0.25 mg Documented by: Dextrose (Dextrose 50% 50 Ml Vial) 0 ml IV UD PRN PRN Reason: Hypoglycemia Diagnostic Test (Pha) (Accu-Chek 1 Each Strip) 1 each FS ACHS [facility] Last Admin: 03/15/21 12:01 Dose: 1 each Documented by: Docusate Sodium (Docusate Sodium 100 Mg Capsule) 100 mg PO BID [facility] Last Admin: 03/15/21 08:10 Dose: 100 mg Documented by: Furosemide (Furosemide 40 Mg Tablet) 40 mg PO BIDD [facility] Last Admin: 03/15/21 07:27 Dose: 40 mg Documented by: Glucose (Dextrose 31 Gm Oral.Susp) 15 gm PO PRN PRN PRN Reason: Hypoglycemia Heparin Sodium (Porcine) (Heparin Flush 10 Units/Ml 5 Ml Syringe) 5 ml IV Q12 [facility] Last Admin: 03/15/21 08:12 Dose: 5 ml Documented by: Magnesium Sulfate (Magnesium Sulfate) 2 gm in 50 mls @ 50 mls/hr IV UD PRN PRN Reason: Magnesium </= 1.6 Last Infusion: 03/14/21 08:40 Dose: Infused Documented by: Piperacillin Sod/Tazobactam (Sod 3.375 gm/ Dextrose) 50 mls @ 100 mls/hr IV Q6H [facility]; Protocol Last Admin: 03/15/21 12:00 Dose: 100 mls/hr Documented by: Potassium Chloride 40 meq/ (Dextrose) 520 mls @ 130 mls/hr IV UD PRN PRN Reason: Potassium < 3 Insulin Human Lispro (Insulin Lispro 1 Unit/0.01 Ml Unit) 0 unit SQ [facility]; Protocol Last Admin: 03/15/21 12:00 Dose: 6 units Documented by: Labetalol HCl (Labetalol 5 Mg/Ml Ml) 0 mg IV Q2HP PRN PRN Reason: Hypertension Last Admin: 03/13/21 16:14 Dose: 10 mg Documented by: Losartan Potassium (Losartan 50 Mg Tablet) 50 mg PO DAILY [facility] Last Admin: 03/15/21 08:10 Dose: 50 mg Documented by: Metoclopramide HCl (Metoclopramide 10 Mg/2 Ml Vial) 10 mg IV Q6HP PRN PRN Reason: Nausea And Vomiting Ondansetron HCl (Ondansetron 4 Mg/2 Ml Vial) 4 mg IV Q4HP PRN PRN Reason: Nausea And Vomiting Pantoprazole Sodium (Pantoprazole 40 Mg Packet) 40 mg PO QAMAC [facility] Last Admin: 03/15/21 07:27 Dose: 40 mg Documented by: Cyanocobalamin ( Vitamin B-12) 50 Mcg Tablet 1 dose PO QDAY [facility] Last Admin: 03/15/21 08:49 Dose: Not Given Documented by: Potassium Chloride (Potassium Chloride 20 Meq Tablet) 40 meq PO UD PRN PRN Reason: Potssium is 3-3.5 Potassium Chloride (Potassium Chloride 20 Meq Tablet) 40 meq PO UD PRN PRN Reason: Potassium < 3 Prochlorperazine (Prochlorperazine 10 Mg/2 Ml Vial) 5 mg IV Q4-6HP PRN PRN Reason: Nausea And Vomiting Senna (Sennosides 1 Tablet) 2 tab PO DAILYP PRN PRN Reason: Constipation Sodium Chloride (0.9 % Sodium Chloride 10 Ml Syringe) 10 ml IV Q8 [facility] Last Admin: 03/15/21 05:37 Dose: 10 ml Documented by: A/P Narrative A/P Narrative: * Febrile neutropenia-managed per ID. Currently on Zosyn. DC Levaquin. Continue Granix. ANC 300. Continue neutropenic precautions * History of AML/MDS with pancytopenia managed by Dr. Peterson oncology at [place] * Pancytopenia with thrombocytopenia status post 2 units platelet transfusion, currently at 30 5K no indication of bleeding * Type II DM on diet control/sliding scale * Essential hypertensive currently normotensive * Prophylaxis SCD Plan * Continue Granix/Zosyn * Await further recommendations from oncology * Pre-existing medical condition management as above * PT OT nutrition support * Discharge planning pending clinical improvement Time Spent With Patient Time: Total time spent is greater than 50% in coordination of care (as documented) at patient's floor/unit and/or counseling patient: QUALITY Stroke Symptom Onset Unknown: No VTE Deep Vein Thrombosis/Pulmonary Embolism Present on Admission: No
[2021-03-16] MEDS: PIPERACILLIN SODIUM/TAZOBACTAM 3.375 GM in DEXTROSE 5% IN WATER 50 ML IV SCH ×4 (00:24→17:45)
[2021-03-16] MEDS: 0.9 % SODIUM CHLORIDE 10 ML SYRINGE IV SCH ×3 (05:51→20:58)
[2021-03-16] MEDS: FUROSEMIDE 40 MG TABLET PO SCH ×2 (07:33→15:44)
[2021-03-16] MEDS: PANTOPRAZOLE 40 MG PACKET PO SCH (07:33)
[2021-03-16] MEDS: INSULIN LISPRO 1 UNIT/0.01 ML UNIT SQ SCH ×4 (07:40→20:53)
[2021-03-16] MEDS: LOSARTAN 50 MG TABLET PO SCH (09:01)
[2021-03-16] MEDS: ACYCLOVIR 400 MG TABLET PO SCH ×2 (09:01→20:58)
[2021-03-16] MEDS: DOCUSATE SODIUM 100 MG CAPSULE PO SCH ×2 (09:01→20:58)
[2021-03-16] MEDS: ALPRAZolam 0.25 MG TABLET PO PRN (09:07)
[2021-03-16] MEDS: TBO-FILGRASTIM 300 MCG/0.5 ML SYRINGE SQ SCH (10:24)
[2021-03-16 12:27] LABS: Hematocrit 27.4 % (41.0-55.0); Hemoglobin 9.6 g/dL (13.5-16.5); Mean Cell Volume 91.3 fL (80.0-100.0); Mean Platelet Volume 11.2 fL (7.4-10.4); Platelet Count 22 K/mcL (140-440); Red Cell Distribution Width 14.7 % (11.5-14.5)
[2021-03-16 13:33] LABS: WBC 0.5 K/mcL (4.5-11.0)
--- NOTE | 2021-03-16 20:49 | Internal Med Progress Note ---
SUBJECTIVE Subjective Patient information: Note initiated : 03/16/21 at 8:45 pm Service Date, if different from initiated Date: [] Patient: Kevin Randolph 70 y/o M admitted on 03/07/21 for weakness, neutropenic fever. Chief Complaint: [] Interval history: Patient presents to [facility] with shaking tremors. 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 He felt fine in the morning prior to his chemotherapy. He has a history of tremors the left side and has them daily. Symptoms are worse than other times. Remaining go to the ED today is because his left side tremors are came so severe and then they started moving over the right side which she has not had before. He does not feel ill just tired. Denies chest pain shortness of breath abdominal pain. When he was evaluated in the ED his laboratory was concerning for septic picture because he had a severe lactic acidosis and he was febrile in the ED -and with his chronic pancytopenia a source of infection was sought after but unable to be identified. Laboratory was significant for neutropenia which is had at least since February 16. Is a history of pancytopenia and has been receiving platelet transfusions as well as red blood cell transfusions when hematocrit falls to less than 28. In the ED he was evaluated his blood pressure remained stable in the low 100s. He was febrile of 103 when he came in. His procalcitonin was elevated mildly 0.57. He had a CT abdomen pelvis looking for source of infection as initial chest x- ray and urinalysis were unremarkable. The CT only showed a questionable developing pneumonia. [facility] unable to find a bed for the patient and thus we were contacted. Blood cultures were obtained patient received sepsis protocol IV fluids and given vancomycin and cefepime. ED physician in the process of trying to get a hold of the patient's oncologist but has been unsuccessful. 03/09/21: Afebrile overnight. Absolute neutrophile count is 102 this morning. c/o chills. c/o left sided tremors. Denies fever or sweating. c/o general body weakness. Denies nausea or vomiting. 03/10/21: Afebrile overnight. Absolute neutrophile count is 216 this morning, up from 102 yesterday. c/o chills. c/o left sided tremors. Denies fever or sweating. Denies general body weakness. Denies nausea or vomiting. 03/11/21: Afebrile overnight. Absolute neutrophile count is 171 this morning, down from 216 yesterday. Platelet count 18, down from 29 yesterday. Denies no sebleed or hematemesis or bloody stool. Denies pain or discomfort. Denies fever, chill, or sweating. 03/12/21: Afebrile overnight. ANC 208 this morning, up from 171 yesterday. Received 2 unit plt transfusion yesterday, plt count 18-->34. Denies nosebleed or hematemesis or bloody stool. Denies pain or discomfort. Denies fever, chill, or sweating. 03/13/21: Afebrile overnight. ANC 208 this morning, same as yesterday. Hemoglobin 6.9 this morning, down from 7.3 yesterday. Denies nosebleed or hematemesis or bloody stool. Denies pain or discomfort. Denies fever, chill, or sweating. 03/14/21: Afebrile overnight. ANC pending. Platelet 17 this morning. No hemoptysis or hematemesis or bloody stool or hematochezia. Denies pain or discomfort. Denies fever, chill, or sweating. 03/15.-Patient doing better. T-max 99.8. Continue levofloxacin/Zosyn as per ID recommendations. On Granix day 7. ANC 300. Await callback from patient's oncologist for further recommendations. Patient is now day 8 hospitalization ongoing management for neutropenic fever. Per ID recommendations Levaquin discontinued. Continuing Zosyn. As needed blood cultures for T-max greater than 100.5. 03/16-Case discussed with Dr. Carrillo oncology. After careful review of chart oncologist felt that the poor response of Granix may mandate bone marrow biopsy however he recommended if patient does not have fever or signs of infection to switch to oral antibiotics/antiviral and antifungal coverage based on ID recommendations and possibly discharge with outpatient bone marrow biopsy. Oncologist also felt that the poor response to Granix may be secondary to refractory myeloid cells and hence Granix may be discontinued. We will seek further recommendations from ID regarding treatment plan Constitutional Vitals: Vital Signs Temp Pulse Resp BP Pulse Ox 98.4 F 98 H 18 102/70 93 03/16/21 19:43 03/16/21 19:43 03/16/21 19:43 03/16/21 19:43 03/16/21 19:43 Period Temp Pulse Resp BP Sys/Quijano Pulse Ox Last 24 Hr 97.6 F-99.1 F 90-101 16-18 102-132/66-82 92-97 Intake and Output 03/16/21 03/16/21 03/16/21 05:59 13:59 21:59 Intake Total 530 100 600 Balance 530 100 600 Alert oriented Nonlabored breathing No anxiety Nondistended nontender abdomen Intake & Output: Intake & Output 03/16/21 03/16/21 03/16/21 05:59 13:59 21:59 Intake Total 530 100 600 Balance 530 100 600 Intake: IV 50 100 Zosyn 3.375 gm In Dextrose 5% 50 100 in Water 50 ml @ 100 mls/hr IV Q6H [facility] Rx#:[id number] Oral 480 600 Other: # Voids 3 OBJ DATA Labs CBC & Chem 7: 03/16/21 10:28 03/11/21 04:56 Labs: Abnormal Lab Results 03/16/21 03/15/21 03/14/21 10:28 05:50 05:55 WBC 0.5 L* 0.5 L* 0.5 L* RBC 3.00 L 3.01 L 2.86 L Hgb 9.6 L 9.2 L 9.1 L Hct 27.4 L 27.2 L 26.0 L RDW 14.7 H Plt Count 22 L* 35 L* 17 L* MPV 11.2 H 11.5 H 10.5 H Seg Neutrophils % 34 L Band Neutrophils % 15 H Lymphocytes % 56 H Platelet Estimate Markedly decreased A Markedly decreased A RBC Morphology Abnormal A Hypochromasia Few A Meds: Medications Acetaminophen (Acetaminophen 325 Mg Tablet) 650 mg PO Q6HP PRN PRN Reason: PAIN/FEVER > 101 Last Admin: 03/14/21 15:00 Dose: 650 mg Documented by: Acyclovir (Acyclovir 400 Mg Tablet) 800 mg PO BID PAVEL; Protocol Last Admin: 03/16/21 09:01 Dose: 800 mg Documented by: Albuterol/Ipratropium (Ipratropium/Albuterol 3 Ml Ampul.Neb) 3 ml NEB Q4HP PRN PRN Reason: Shortness Of Breath Alprazolam (Alprazolam 0.25 Mg Tablet) 0.25 mg PO BIDP PRN PRN Reason: Anxiety Last Admin: 03/16/21 09:07 Dose: 0.25 mg Documented by: Dextrose (Dextrose 50% 50 Ml Vial) 0 ml IV UD PRN PRN Reason: Hypoglycemia Diagnostic Test (Pha) (Accu-Chek 1 Each Strip) 1 each FS [facility] Last Admin: 03/16/21 16:58 Dose: 1 each Documented by: Docusate Sodium (Docusate Sodium 100 Mg Capsule) 100 mg PO BID [facility] Last Admin: 03/16/21 09:01 Dose: 100 mg Documented by: Furosemide (Furosemide 40 Mg Tablet) 40 mg PO BIDD [facility] Last Admin: 03/16/21 15:44 Dose: 40 mg Documented by: Glucose (Dextrose 31 Gm Oral.Susp) 15 gm PO PRN PRN PRN Reason: Hypoglycemia Heparin Sodium (Porcine) (Heparin Flush 10 Units/Ml 5 Ml Syringe) 5 ml IV Q12 [facility] Last Admin: 03/16/21 09:02 Dose: 5 ml Documented by: Magnesium Sulfate (Magnesium Sulfate) 2 gm in 50 mls @ 50 mls/hr IV UD PRN PRN Reason: Magnesium </= 1.6 Last Infusion: 03/14/21 08:40 Dose: Infused Documented by: Piperacillin Sod/Tazobactam (Sod 3.375 gm/ Dextrose) 50 mls @ 100 mls/hr IV Q6H [facility]; Protocol Last Admin: 03/16/21 17:45 Dose: 100 mls/hr Documented by: Potassium Chloride 40 meq/ (Dextrose) 520 mls @ 130 mls/hr IV UD PRN PRN Reason: Potassium < 3 Insulin Human Lispro (Insulin Lispro 1 Unit/0.01 Ml Unit) 0 unit SQ [facility]; Protocol Last Admin: 03/16/21 16:57 Dose: 6 units Documented by: Labetalol HCl (Labetalol 5 Mg/Ml Ml) 0 mg IV Q2HP PRN PRN Reason: Hypertension Last Admin: 03/13/21 16:14 Dose: 10 mg Documented by: Losartan Potassium (Losartan 50 Mg Tablet) 50 mg PO DAILY [facility] Last Admin: 03/16/21 09:01 Dose: 50 mg Documented by: Metoclopramide HCl (Metoclopramide 10 Mg/2 Ml Vial) 10 mg IV Q6HP PRN PRN Reason: Nausea And Vomiting Ondansetron HCl (Ondansetron 4 Mg/2 Ml Vial) 4 mg IV Q4HP PRN PRN Reason: Nausea And Vomiting Pantoprazole Sodium (Pantoprazole 40 Mg Packet) 40 mg PO QAMAC [facility] Last Admin: 03/16/21 07:33 Dose: 40 mg Documented by: Cyanocobalamin ( Vitamin B-12) 50 Mcg Tablet 1 dose PO QDAY [facility] Last Admin: 03/16/21 09:02 Dose: Not Given Documented by: Potassium Chloride (Potassium Chloride 20 Meq Tablet) 40 meq PO UD PRN PRN Reason: Potssium is 3-3.5 Potassium Chloride (Potassium Chloride 20 Meq Tablet) 40 meq PO UD PRN PRN Reason: Potassium < 3 Prochlorperazine (Prochlorperazine 10 Mg/2 Ml Vial) 5 mg IV Q4-6HP PRN PRN Reason: Nausea And Vomiting Senna (Sennosides 1 Tablet) 2 tab PO DAILYP PRN PRN Reason: Constipation Sodium Chloride (0.9 % Sodium Chloride 10 Ml Syringe) 10 ml IV Q8 [facility] Last Admin: 03/16/21 15:20 Dose: 10 ml Documented by: A/P Narrative A/P Narrative: * Febrile neutropenia-managed per ID. Currently on Zosyn. DC Granix per oncology. ANC 200. Maintain neutropenic precautions * History of AML/MDS with pancytopenia managed by Dr. Peterson oncology at [place]. Case discussed with Dr. Carrillo * Pancytopenia with thrombocytopenia status post 2 units platelet transfusion, currently at 30 5K no indication of bleeding * Type II DM on diet control/sliding scale * Essential hypertensive currently normotensive * Prophylaxis SCD Plan * Continue Zosyn per ID, possible de-escalation * DC Granix per oncology * Continue pre-existing medical condition management as above * PT OT nutrition support * Discharge planning pending clinical improvement Time Spent With Patient Time: Total time spent is greater than 50% in coordination of care (as documented) at patient's floor/unit and/or counseling patient: QUALITY Stroke Symptom Onset Unknown: No VTE Deep Vein Thrombosis/Pulmonary Embolism Present on Admission: No
[2021-03-17] MEDS: PIPERACILLIN SODIUM/TAZOBACTAM 3.375 GM in DEXTROSE 5% IN WATER 50 ML IV SCH ×3 (00:19→11:45)
[2021-03-17] MEDS: 0.9 % SODIUM CHLORIDE 10 ML SYRINGE IV SCH (06:00)
[2021-03-17] MEDS: FUROSEMIDE 40 MG TABLET PO SCH (07:31)
[2021-03-17] MEDS: PANTOPRAZOLE 40 MG PACKET PO SCH (07:31)
[2021-03-17] MEDS: INSULIN LISPRO 1 UNIT/0.01 ML UNIT SQ SCH ×2 (07:32→11:45)
[2021-03-17] MEDS: ACYCLOVIR 400 MG TABLET PO SCH (08:24)
[2021-03-17] MEDS: LOSARTAN 50 MG TABLET PO SCH (08:24)
[2021-03-17] MEDS: DOCUSATE SODIUM 100 MG CAPSULE PO SCH (08:24)
[2021-03-17] MEDS: ALPRAZolam 0.25 MG TABLET PO PRN (08:30)
[2021-03-17 08:33] LABS: Basophils # (Auto) 0.01 K/mcL (0.00-0.20); Eosinophils # (Auto) 0.01 K/mcL (0.00-0.70); Hemoglobin 9.3 g/dL (13.5-16.5); Lymphocytes % (Auto) 40.8 % (15.0-49.0); Mean Cell Volume 91.8 fL (80.0-100.0); Mean Corpuscular HGB Conc 34.4 g/dL (31.0-36.0); Mean Platelet Volume 10.8 fL (7.4-10.4); Monocytes # (Auto) 0.05 K/mcL (0.10-0.90); Monocytes % (Auto) 10.2 % (1.0-12.0); Platelet Count 15 K/mcL (140-440); RBC 2.94 M/mcL (4.50-5.90); Red Cell Distribution Width 14.8 % (11.5-14.5)
[2021-03-17 09:27] LABS: WBC 0.5 K/mcL (4.5-11.0)
--- NOTE | 2021-03-17 10:53 | Discharge Summary ---
Discharge Provider Provider Patient information: Note initiated : 03/17/21 at 10:50 am Service Date, if different from initiated Date: [] Patient: Kevin Randolph 70 y/o M admitted on 03/07/21 for weakness, neutropenic fever. Discharge diagnosis * Febrile neutropenia-managed per ID. Will discharge on levofloxacin 500 daily. ANC around 200. ontinue to maintain neutropenic precautions * History of AML/MDS with pancytopenia managed by Dr. Peterson oncology at [place]. Case discussed with Dr. Carrillo, recommends outpatient bone marrow biopsy/oncology follow-up * Pancytopenia with thrombocytopenia status post 2 units platelet transfusion, currently at 20 K no evidence of bleeding * Type II DM on diet control/sliding scale * Essential hypertension currently normotensive Brief hospital course Patient presents to [facility] with shaking tremors. 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 He felt fine in the morning prior to his chemotherapy. He has a history of tremors the left side and has them daily. Symptoms are worse than other times. Remaining go to the ED today is because his left side tremors are came so severe and then they started moving over the right side which she has not had before. He does not feel ill just tired. Denies chest pain shortness of breath abdominal pain. When he was evaluated in the ED his laboratory was concerning for septic picture because he had a severe lactic acidosis and he was febrile in the ED -and with his chronic pancytopenia a source of infection was sought after but unable to be identified. Laboratory was significant for neutropenia which is had at least since February 16. Is a history of pancytopenia and has been receiving platelet transfusions as well as red blood cell transfusions when hematocrit falls to less than 28. In the ED he was evaluated his blood pressure remained stable in the low 100s. He was febrile of 103 when he came in. His procalcitonin was elevated mildly 0.57. He had a CT abdomen pelvis looking for source of infection as initial chest x- ray and urinalysis were unremarkable. The CT only showed a questionable developing pneumonia. [facility] unable to find a bed for the patient and thus we were contacted. Blood cultures were obtained patient received sepsis protocol IV fluids and given vancomycin and cefepime. ED physician in the process of trying to get a hold of the patient's oncologist but has been unsuccessful. 03/09/21: Afebrile overnight. Absolute neutrophile count is 102 this morning. c/o chills. c/o left sided tremors. Denies fever or sweating. c/o general body weakness. Denies nausea or vomiting. 03/10/21: Afebrile overnight. Absolute neutrophile count is 216 this morning, up from 102 yesterday. c/o chills. c/o left sided tremors. Denies fever or sweating. Denies general body weakness. Denies nausea or vomiting. 03/11/21: Afebrile overnight. Absolute neutrophile count is 171 this morning, down from 216 yesterday. Platelet count 18, down from 29 yesterday. Denies nosebleed or hematemesis or bloody stool. Denies pain or discomfort. Denies fever, chill, or sweating. 03/12/21: Afebrile overnight. ANC 208 this morning, up from 171 yesterday. Received 2 unit plt transfusion yesterday, plt count 18-->34. Denies nosebleed or hematemesis or bloody stool. Denies pain or discomfort. Denies fever, chill, or sweating. 03/13/21: Afebrile overnight. ANC 208 this morning, same as yesterday. Hemoglobin 6.9 this morning, down from 7.3 yesterday. Denies nosebleed or hematemesis or bloody stool. Denies pain or discomfort. Denies fever, chill, or sweating. 03/14/21: Afebrile overnight. ANC pending. Platelet 17 this morning. No hemoptysis or hematemesis or bloody stool or hematochezia. Denies pain or discomfort. Denies fever, chill, or sweating. 03/15.-Patient doing better. T-max 99.8. Continue levofloxacin/Zosyn as per ID recommendations. On Granix day 7. ANC 300. Await callback from patient's oncologist for further recommendations. Patient is now day 8 hospitalization ongoing management for neutropenic fever. Per ID recommendations Levaquin discontinued. Continuing Zosyn. As needed blood cultures for T-max greater than 100.5. 03/16-Case discussed with Dr. Carrillo oncology. After careful review of chart oncologist felt that the poor response of Granix may mandate bone marrow biopsy however he recommended if patient does not have fever or signs of infection to switch to oral antibiotics/antiviral and antifungal coverage based on ID recommendations and possibly discharge with outpatient bone marrow biopsy. Oncologist also felt that the poor response to Granix may be secondary to refractory myeloid cells and hence Granix may be discontinued. We will seek further recommendations from ID regarding treatment plan 03/17-Case discussed with oncology. Recommends discharging home on levofloxacin 500 mg daily. No overnight fever chills. No additional concerns per nursing staff. Patient require outpatient bone marrow biopsy on discharge. Will follow with oncology. Patient feels that he is near baseline and denies active concerns including abdominal pain nausea fever chills. Detailed discharge instructions as below Date of admission: 03/07/21 22:24 Discharge date: 03/17/21 Primary care physician: Jayden Ordonez Consults: 03/09/21 10:41 Consult to Infectious Disease [CONS] Routine Comment: neutropenic fever Consulting Provider: Jayden Krishna Reason For Exam: Physician to Consult Discharge Meds Discharge Medications Home Medications Ozempic See Rx Instructions .ROUTE .COMPLEX 03/08/21 [History Confirmed 03/08/21 Last Taken 03/03/21 08:00] Tresiba U-100 Insulin 10 unit SUBCUT DAILY 03/08/21 [History Confirmed 03/08/21 Last Taken 03/07/21 09:00] acyclovir 800 mg PO BID 03/08/21 [History Confirmed 03/08/21 Last Taken 03/07/21 09:00] albuterol 90 mcg INHALATION PRN PRN 03/08/21 [History Confirmed 03/08/21 Last Taken 02/22/21] alprazolam 0.25 mg PO BID 03/08/21 [History Confirmed 03/08/21 Last Taken 03/07/21 09:00] bisoprolol fumarate 5 mg PO QDAY 03/08/21 [History Confirmed 03/08/21 Last Taken 03/07/21 09:00] cyanocobalamin (vitamin B-12) 50 mcg PO QDAY 03/08/21 [History Confirmed 03/08 Last Taken 03/07/21 09:00] losartan 50 mg PO DAILY 03/08/21 [History Confirmed 03/08/21 Last Taken 03/07/21 09:00] magnesium oxide 400 mg PO BID 03/08/21 [History Confirmed 03/08/21 Last Taken 03/07/21 09:00] metformin 500 mg PO BID 03/08/21 [History Confirmed 03/08/21 Last Taken 03/07/21 09:00] multivitamin 1 tab PO QDAY 03/08/21 [History Confirmed 03/08/21 Last Taken 03/07/21 09:00] pantoprazole 40 mg PO DAILY 03/08/21 [History Confirmed 03/08/21 Last Taken 03/07/21 09:00] prochlorperazine maleate 10 mg PO BID 03/08/21 [History Confirmed 03/08/21 Last Taken 03/07/21 09:00] levofloxacin 500 mg PO Q24H #30 tab 03/17/21 [Rx Last Taken Unknown] COURSE Hospital Course Hospital course: . Discharge diagnosis: . Time Spent with Patient Time attestation: Total time spent providing and/or coordinating discharge services: EXAM Constitutional Vitals: Temp Pulse Resp BP Pulse Ox 97.7 F 95 H 16 116/74 94 03/17/21 07:46 03/17/21 07:46 03/17/21 07:46 03/17/21 07:46 03/17/21 07:46 Discharge Data Data Completed and Pending Labs on day of discharge: Labs from last 24 hours 03/17/21 03/16/21 05:25 10:28 WBC 0.5 L* 0.5 L* RBC 2.94 L 3.00 L Hgb 9.3 L 9.6 L Hct 27.0 L 27.4 L MCV 91.8 91.3 MCH 31.6 32.0 MCHC 34.4 35.0 RDW 14.8 H 14.7 H Plt Count 15 L* 22 L* MPV 10.8 H 11.2 H Neut % (Auto) 45.0 Lymph % (Auto) 40.8 TNP [place] % (Auto) 10.2 TNP Eos % (Auto) 2.0 TNP Baso % (Auto) 2.0 TNP Lymph # (Auto) 0.20 L TNP [place] # (Auto) 0.05 L TNP Eos # (Auto) 0.01 TNP Baso # (Auto) 0.01 TNP Absolute Neutrophils 0.22 L* TNP Discharge Plan Patient/Caregiver Discharge Instructions Activity: increase activity as tolerated Diet: Regular Diet Instructions: Tbo-Filgrastim (By injection), Neutropenic Precautions (GEN) Activity Restrictions/Additional Instructions: Neutropenic diet Continue levofloxacin 500 mg daily Continue follow-up with oncology and outpatient bone marrow biopsy as per oncology recommendations Prescriptions: New levofloxacin 500 mg tablet 500 mg PO Q24H Qty: 30 RF: 0 Continued multivitamin Tablet 1 tab PO QDAY RF: 0 losartan 50 mg tablet 50 mg PO DAILY RF: 0 prochlorperazine maleate 10 mg tablet 10 mg PO BID RF: 0 acyclovir 800 mg tablet 800 mg PO BID RF: 0 alprazolam 0.25 mg tablet 0.25 mg PO BID RF: 0 pantoprazole 40 mg tablet,delayed release (DR/EC) 40 mg PO DAILY RF: 0 metformin 500 mg tablet extended release 24 hr 500 mg PO BID RF: 0 magnesium oxide 400 mg magnesium Capsule 400 mg PO BID RF: 0 Ozempic 0.25 mg or 0.5 mg(2 mg/1.5 mL) pen injector See Rx Instructions .ROUTE .COMPLEX RF: 0 cyanocobalamin (vitamin B-12) 50 mcg Tablet 50 mcg PO QDAY RF: 0 bisoprolol fumarate 5 mg Tablet 5 mg PO QDAY RF: 0 albuterol 90 mcg/actuation Aerosol 90 mcg INHALATION PRN PRN (Reason: Shortness Of Breath) RF: 0 Tresiba U-100 Insulin 100 unit/mL Solution 10 unit SUBCUT DAILY RF: 0 Follow Up Plan Patient Disposition: Home, Self-Care Rehab Potential: Fair I certify that the patient requires SNF services: No Overall status at discharge: patient is progressing back to baseline Discharge Orders: Discharge Order (Routine); Ordered 03/17/21 Ordered By: Gilberto DOMÍNGUEZ VTE Deep Vein Thrombosis/Pulmonary Embolism Present on Admission: No
== END 2021-03-17 14:17 | disposition home or self-care (01) | DRG 809 ==
LOC: ICU 22:24 → MEDSUR 03-14 17:25
PROVIDERS: ADMIT Internal Medicine; ATTEND Internal Medicine